=== PATIENT | male | born 1955 | race Caucasian/White ===

== ENCOUNTER → 2019-08-27 11:35 | Outpatient (BNVA) | payer MEDICARE, SELFPAY | PROVIDERS: Family Provider Family Medicine; PCP Nurse Practitioner; Visit Provider Nurse Practitioner | DX: E11.9 Type 2 diabetes mellitus without complications (principal); I10 Essential (primary) hypertension; N40.0 Benign prostatic hyperplasia without lower urinary tract symptoms; Z76.89 Persons encountering health services in other specified circumstances | CPT/HCPCS: 80053; 80061; 82044; 83036; 85025 ==

== ENCOUNTER → 2020-04-13 08:28 | Outpatient (BNVA) | payer MEDICARE, SELFPAY | PROVIDERS: Family Provider Family Medicine; PCP Family Medicine; Visit Provider Family Medicine | DX: E11.9 Type 2 diabetes mellitus without complications (principal); E78.5 Hyperlipidemia, unspecified; I10 Essential (primary) hypertension; N40.0 Benign prostatic hyperplasia without lower urinary tract symptoms; G47.00 Insomnia, unspecified | CPT/HCPCS: 80053; 80061; 82043; 83036; 84153; 85025 ==

== ENCOUNTER → 2020-05-12 10:46 | Outpatient (BNVA) | payer MEDICARE, SELFPAY | PROVIDERS: Family Provider Family Medicine; PCP Family Medicine; Visit Provider Family Medicine | DX: M25.561 Pain in right knee (principal) | CPT/HCPCS: 84550 ==

== ENCOUNTER → 2020-05-31 09:50 | Outpatient (BNVA) | payer MEDICARE, SELFPAY | PROVIDERS: Family Provider Family Medicine; PCP Family Medicine; Visit Provider Urology | DX: N40.0 Benign prostatic hyperplasia without lower urinary tract symptoms (principal); R97.20 Elevated prostate specific antigen [PSA]; N40.1 Benign prostatic hyperplasia with lower urinary tract symptoms; R33.9 Retention of urine, unspecified; Z12.5 Encounter for screening for malignant neoplasm of prostate | CPT/HCPCS: 81003; G0103 ==

== ENCOUNTER → 2020-07-13 08:10 | Outpatient (BNVA) | payer MEDICARE, SELFPAY | PROVIDERS: Family Provider Family Medicine; PCP Family Medicine; Visit Provider Urology | DX: N40.1 Benign prostatic hyperplasia with lower urinary tract symptoms (principal); R97.20 Elevated prostate specific antigen [PSA]; I10 Essential (primary) hypertension | CPT/HCPCS: 81003; 84153 ==

== ENCOUNTER → 2020-10-06 09:16 | Outpatient (BNVA) | payer MEDICARE, SELFPAY | PROVIDERS: Family Provider Family Medicine; PCP Family Medicine; Visit Provider Family Medicine | DX: I10 Essential (primary) hypertension (principal); E11.9 Type 2 diabetes mellitus without complications; E78.5 Hyperlipidemia, unspecified | CPT/HCPCS: 80053; 80061; 83036; 85025 ==

== ENCOUNTER 2020-10-30 09:01 | Outpatient (CLI) | payer MEDICARE, SELFPAY ==
[2020-10-30] MEDS: iohexol 300 mg/mL 100 mL Btl IV (09:44)
--- NOTE | 2020-10-30 10:30 | CT_ITS ---
WS: [id number] CT ABDOMEN AND PELVIS WITH AND WITHOUT CONTRAST HISTORY: GROSS HEMATURIA TECHNIQUE: Unenhanced 5 mm axial imaging first performed through the abdomen. Post contrast imaging t hrough the abdomen and pelvis. Oral contrast has not been provided. Sagittal and coronal reformats a re submitted. All CT scans at [facility] use at least one of these dose optimization tech niques: automated exposure control; mA and/or kV adjustment per patient size (includes targeted exams where dose is matched to clinical indication); or iterative reconstruction. CONTRAST: Omnipaque 300; 95 mL IV. DLP: 4254.76 mGy.cm COMPARISON: 02/28/2011 Lung bases are clear. No cardiomegaly. Small hiatal hernia. Normal size liver with no bile duct dilatation. Portal vein is negative. Normally distended gallbladd er with several stones. No acute inflammation. No bile duct dilatation. Normal spleen and pancreas. N ormal adrenal glands. Very mild atherosclerosis aorta with calcifications extending into the iliac ar teries. RIGHT kidney: 12.4 cm in length. No renal calcification. There is an enlarging low-attenuation mass i n the mid to upper posterior RIGHT kidney. Mass measures 3.8 x 3.2 cm and has increased in size since the prior CT of 2010. Hounsfield units do not increase after IV contrast. Therefore this is probably a cyst. There are a few additional very small cortical hypodensities which cannot be characterized. No renal obstruction. No ureteral obstruction. LEFT kidney: 12.1 cm in length. No renal calcifications or mass. No perinephric stranding. Negative u reter. Moderately well distended urinary bladder. There is very mild diffuse wall thickening without a discr ete area of nodularity. Markedly enlarged prostate gland is lobulated extending into the urinary blad charles. Prostate measures 6.7 x 6.9 cm and extends over length of 8.2 cm. The ureters are very closely a ssociated with the prostate gland enlargement although no obstruction at this time. Extensive diverticular disease without acute diverticulitis. More advanced changes of chronic diverti culosis in the sigmoid. The appendix is normal. No obstruction. No significant adenopathy. Inguinal c anals are patent bilaterally. Mild increase in lumbar lordosis. CT/CT abdomen pelvis wo/w [id number] IMPRESSION: 1. No solid renal mass or neoplasm or obstruction. 2. RIGHT renal cyst measures 3.8 x 3.2 cm and has increased in size since 2011 . Hounsfield units are consistent with a cyst. 3. Markedly enlarged prostate gland with encroachment into the bladder. Prosta te measures 6.7 x 6.9 cm and extends over length of 8.2 cm. 4. Prostate gland enlargement is closely associated with the distal ureters. A t this time no obstruction. 5. Cholelithiasis. 6. Moderate diverticulosis.
== END 2020-10-30 09:02 | disposition home or self-care (01) ==
LOC: RAD 09:14
PROVIDERS: PCP Family Medicine; Visit Provider Urology
DX: R31.0 Gross hematuria (principal); K57.90 Diverticulosis of intestine, part unspecified, without perforation or abscess without bleeding; K80.20 Calculus of gallbladder without cholecystitis without obstruction; N40.0 Benign prostatic hyperplasia without lower urinary tract symptoms; N28.1 Cyst of kidney, acquired
CPT/HCPCS: 74178; 81003; 84153; 87086; 88112

== ENCOUNTER → 2021-01-12 10:25 | Outpatient (BNVA) | payer MEDICARE, SELFPAY | PROVIDERS: PCP Family Medicine; Visit Provider Family Medicine | DX: E11.40 Type 2 diabetes mellitus with diabetic neuropathy, unspecified; I10 Essential (primary) hypertension; E78.5 Hyperlipidemia, unspecified | CPT/HCPCS: 80053; 83036 ==

== ENCOUNTER → 2021-05-02 08:26 | Outpatient (BNVA) | payer MEDICARE, SELFPAY | PROVIDERS: PCP Family Medicine; Visit Provider Urology | DX: R31.0 Gross hematuria (principal); R97.20 Elevated prostate specific antigen [PSA]; N40.1 Benign prostatic hyperplasia with lower urinary tract symptoms; N52.1 Erectile dysfunction due to diseases classified elsewhere; I10 Essential (primary) hypertension; E11.9 Type 2 diabetes mellitus without complications | CPT/HCPCS: 81003; 84153 ==

== ENCOUNTER → 2022-01-11 08:54 | Outpatient (BNVA) | payer MEDICARE, SELFPAY | PROVIDERS: PCP Family Medicine; Visit Provider Family Medicine | DX: I10 Essential (primary) hypertension (principal); E78.5 Hyperlipidemia, unspecified; E11.9 Type 2 diabetes mellitus without complications; E11.42 Type 2 diabetes mellitus with diabetic polyneuropathy; F51.02 Adjustment insomnia | CPT/HCPCS: 80053; 80061; 82043; 83036; 85025 ==

== ENCOUNTER → 2022-04-15 09:25 | Outpatient (BNVA) | payer MEDICARE, SELFPAY | PROVIDERS: PCP Family Medicine; Visit Provider Family Medicine | DX: R63.4 Abnormal weight loss (principal); E11.9 Type 2 diabetes mellitus without complications; Z12.11 Encounter for screening for malignant neoplasm of colon; R97.20 Elevated prostate specific antigen [PSA] | CPT/HCPCS: 80053; 83036; 84153; 84443; 85025 ==

== ENCOUNTER 2022-05-02 09:23 | Outpatient (CLI) | payer MEDICARE, SELFPAY ==
[2022-05-02 10:45] LABS: Prostate Specific AG Urology 4.41 ng/mL (0-4)
== END 2022-05-02 09:24 | disposition home or self-care (01) ==
LOC: LAB 09:34
PROVIDERS: PCP Family Medicine; Visit Provider Urology
DX: N40.1 Benign prostatic hyperplasia with lower urinary tract symptoms (principal); R31.0 Gross hematuria; R97.20 Elevated prostate specific antigen [PSA]; R33.8 Other retention of urine; N52.1 Erectile dysfunction due to diseases classified elsewhere
CPT/HCPCS: 36415; 51798; 81003; 84153; 99213

== ENCOUNTER 2022-06-06 09:56 | Emergency (ER) | payer MEDICARE, SELFPAY ==
[2022-06-06 10:07] VITALS: BP 133/76; PULSE 90; RESP 18; TEMP 36.4; O2SAT 97
--- NOTE | 2022-06-06 10:12 | XRR_ITS ---
PROCEDURE INFORMATION: Exam: XR Left Foot Exam date and time: 06/06/2022 10:33 AM Age: 66 years old Clinical indication: Injury or trauma; Wound; Foot; Left; Foreign body involvement not specified; Patient HX: HX of diabetes, great toe infection, no injury noted by patient; Additional info: Injury to great toe TECHNIQUE: Imaging protocol: Radiologic exam of the Left foot. Views: 3 or more views. AP Oblique Lateral COMPARISON: No relevant prior studies available. FINDINGS: Bones/joints: Curvilinear lucencies are seen in the region of the left great toe distal phalanx, suggestive of a mildly displaced comminuted fracture. There is 1-2 mm distraction. There is mild hallux valgus alignment abnormality. There are no dislocations. Moderate 2nd through 5th toe interphalangeal joint, severe great toe interphalangeal joint, mild 2nd through 5th metatarsophalangeal joint and moderate to severe great toe metatarsophalangeal joint space narrowing is seen, suggestive of osteoarthritic change. Mild tarsometatarsal and moderate subtalar joint degenerative changes are seen. Medium-sized plantar calcaneal spur is seen. Soft tissues: There is mild distal great toe region soft tissue swelling. There are no radiopaque foreign bodies. Notes: Followup radiographs may be obtained for complete assessment. XR/XR foot LT min 3V* [id number] IMPRESSION: Mildly displaced comminuted left great toe distal phalanx fracture, as noted above.
--- NOTE | 2022-06-06 10:23 | XRR_ITS ---
PROCEDURE INFORMATION: Exam: XR Chest Exam date and time: 06/06/2022 10:33 AM Age: 66 years old Clinical indication: Shortness of breath; Patient HX: No chest complaints. History--great toe infection. HX of diabetes; Additional info: Cp TECHNIQUE: Imaging protocol: Radiologic exam of the chest. Views: 1 view. COMPARISON: CT abdomen pelvis wo/w [id number] 10/30/2020 9:40 AM FINDINGS: Lungs: Normal lung volumes. No interstitial or airspace opacities. Pleural spaces: No pleural effusion. No pneumothorax. Heart/Mediastinum: Normal heart size. There is a mildly tortuous thoracic aorta. Midline trachea. Bones/joints: No acute abnormalities. XR/XR chest 1V portable [id number] IMPRESSION: No chest radiographic evidence of acute cardiopulmonary disease.
--- NOTE | 2022-06-06 10:23 | W.ED.EXTPRO ---
HPI - Extremity Problem General: Chief complaint: Extremity Injury, Lower Stated complaint: toe infection Time Seen by Provider: 06/06/22 10:11 History of Present Illness: Patient is a 66-year-old male who comes to the ED with left great toe infection. Patient has a history of type 2 diabetes, hypertension, dyslipidemia and diabetic neuropathy. Patient was seen at urgent care today and they examined patient's toe and sent him here to the ED for further evaluation and IV antibiotics for concern of progressing infection. Patient states that approximately a week ago he got into a hot bath and thinks he burned the distal end of his left toe from the hot water. He then states that about 4 days ago he dropped a heavy box on left great toe as well. He now has 10 out of 10 pain in his left great toe which is radiating into his left foot and left lower leg. Toe has gotten more swollen and red over the past couple days and has some small amount of purulent discharge around the nailbed. He is also complaining of having some chest pain that started at rest approximately 3 days ago. Says it is in the center of his chest and he denies any cardiac history. He has never had chest pain like this before but he says his left foot is in so much pain that it is causing him the chest pain. He states that his chest pain is very mild and most of his pain is in his left foot and left toe. Associated symptoms: Reports chest pain; Deny fever(s) or rash Review of Systems Const: Denies: fever(s), chills or fatigue Eyes: Denies: change in vision or eye discomfort ENMT: Denies: throat pain, odynophagia, nasal discharge or nasal congestion Card: Reports: chest pain; Denies: palpitations, edema, swelling of feet/ankles, dyspnea on exertion or orthopnea Resp: Denies: dyspnea, productive cough or non-productive cough GI: Denies: abdominal pain, nausea, vomiting, diarrhea, constipation or hematochezia : Denies: flank pain, difficulty urinating, dysuria or hematuria Musc: Reports: extremity pain (Left great toe and left foot) and extremity swelling (Left great toe); Denies: neck pain or back pain Skin/Breast: Denies: rash or new lesions Neuro: Denies: headache(s), numbness in extremities or weakness in extremities PFSH ED PFSH: Medical History BPH (benign prostatic hyperplasia) BPH loc w urin obs/LUTS Diabetic infection of left foot Elevated PSA Gross hematuria Hypertension Type 2 diabetes mellitus Type 2 diabetes mellitus with diabetic foot infection Urinary retention Surgical History S/P tonsillectomy Family History Mother , at age 60 Cancer colon Father Alzheimer disease Social History Smoking and tobacco status: never smoked Alcohol intake: never Current occupational status: retired History of recent travel: No Physical Exam Const: COMMON NORMALS: patient oriented x3, healthy appearing and alert HENMT: COMMON NORMALS: normocephalic HEAD & SCALP: normocephalic MOUTH: Normal oral and palatal mucosa present THROAT: posterior oropharynx normal and uvula midline Neck/C-Spine: COMMON NORMALS: supple GENERAL: Yes normal visual inspection Resp: COMMON NORMALS: normal respiratory effort, No retractions, No use of accessory muscles and clear to auscultation bilaterally AUSCULTATION: clear to auscultation bilaterally Cardio: COMMON NORMALS: regular rate, regular rhythm, S1 normal heart sound present, S2 normal heart sound present, No gallops present (Cardio), No clicks present (Cardio), No murmurs present (Cardio) and Peripheral pulses 2+ throughout RATE: regular rate RHYTHM: regular rhythm HEART SOUNDS: S1 normal heart sound present and S2 normal heart sound present PERIPHERAL PULSES: Peripheral pulses 2+ throughout GI: COMMON NORMALS: Normal to inspection, nondistended, normoactive bowel sounds present, Soft to palpation, non-tender and no masses PALPATION: Yes Soft to palpation : COMMON NORMALS: Yes no CVA tenderness BLADDER/KIDNEY EXAM: Yes no CVA tenderness Back/Pelvis: COMMON NORMALS: no CVA tenderness Extremity: NARRATIVE EXTREMITY EXAM: Left foot?great toe-erythema, warmth, swelling and tenderness noted. Small amount of purulent discharge around the nailbed. Some red streaking in the midfoot and right lower leg. Subungual hematoma seen Neuro: COMMON NORMALS: patient oriented x3 SENSORIUM/ORIENTATION: Yes alert GAIT: Yes Normal gait present Skin: GENERAL SKIN EXAM: dry skin Course Vital Signs: Vital signs: Vital Signs Temperature 97.6 F 06/06/22 14:21 Pulse Rate 90 06/06/22 14:21 Respiratory Rate 18 06/06/22 14:21 Blood Pressure 133/76 06/06/22 14:21 Pulse Oximetry 97 06/06/22 14:21 MDM - Extremity (Nontraumatic) Medical Decision Making Patient is a 66-year-old male who comes to the ED with left great toe infection. Patient has a history of type 2 diabetes, hypertension, dyslipidemia and diabetic neuropathy. Patient was seen at urgent care today and they examined patient's toe and sent him here to the ED for further evaluation and IV antibiotics for concern of progressing infection. Patient states that approximately a week ago he got into a hot bath and thinks he burned the distal end of his left toe from the hot water. He then states that about 4 days ago he dropped a heavy box on left great toe as well. He also was complaining of having chest pain for the past 3 days as well. Vitals are stable. Patient's left great toe has some erythema, warmth swelling and tenderness noted. Small amount of purulent discharge around the nailbed. He has some red streaking in midfoot and right lower leg. Subungual hematoma seen. White blood cell count 11.5 and the rest of CBC and CMP are unremarkable. X-ray left foot shows a mildly displaced comminuted left great toe distal phalanx fracture. Troponins negative. Chest x-ray shows no acute findings. Patient diagnosed with fracture of great toe and cellulitis of great toe and chest pain. He was given a dose of IV antibiotics here in the ED. I placed an order with case management for patient be referred to podiatry for follow-up on fracture. He was discharged home with a stiff soled shoe and a prescription for hydrocodone antibiotic. Return to ED precautions given. Patient understood and agreed with plan. Lab Data I reviewed the patient's lab results. 06/06/22 10:25 06/06/22 10:25 Radiology Impressions Foot X-Ray 06/06/22 10:12 IMPRESSION: Mildly displaced comminuted left great toe distal phalanx fracture, as noted above. Chest X-Ray 06/06/22 10:23 IMPRESSION: No chest radiographic evidence of acute cardiopulmonary disease. Laboratory Results WBC 11.5 10^3/uL (4.0-10.0) H 06/06/22 10:25 RBC 4.72 10^6/uL (4.1-5.3) 06/06/22 10:25 Hgb 13.6 g/dL (11.7-16.6) 06/06/22 10:25 Hct 41.1 % (42.0-52.0) L 06/06/22 10:25 MCV 87.1 fl (80-94) 06/06/22 10:25 MCH 28.8 pg (28.0-34.0) 06/06/22 10:25 MCHC 33.1 g/dL (30.0-36.0) 06/06/22 10:25 RDW 12.2 % (12.1-15.1) 06/06/22 10:25 Plt Count 275 10^3/cmm (130-400) 06/06/22 10:25 MPV 9.4 fL (7.4-10.4) 06/06/22 10:25 Neut % (Auto) 82.1 % 06/06/22 10:25 Lymph % (Auto) 7.9 % 06/06/22 10:25 Sebastian % (Auto) 9.0 % 06/06/22 10:25 Eos % (Auto) 0.3 % 06/06/22 10:25 Baso % (Auto) 0.4 % 06/06/22 10:25 Neut # (Auto) 9.42 10^3/uL (1.8-7.7) H 06/06/22 10:25 Lymph # (Auto) 0.9 10^3/uL (0.8-4.8) 06/06/22 10:25 Sebastian # (Auto) 1.0 10^3/uL (0.2-0.9) H 06/06/22 10:25 Eos # (Auto) 0.0 10^3/uL (0.0-0.8) 06/06/22 10:25 Baso # (Auto) 0.1 10^3/uL (0.0-0.1) 06/06/22 10:25 Nucleated RBC % (auto) 0 % 06/06/22 10:25 Nucleated RBCs # 0.0 /100WBC 06/06/22 10:25 Sodium 138 mmol/L (136-145) 06/06/22 10:25 Potassium 4.2 mmol/L (3.5-5.1) 06/06/22 10:25 Chloride 104 mmol/L (98-107) 06/06/22 10:25 Carbon Dioxide 21 mmol/L (22-29) L 06/06/22 10:25 Anion Gap 17.2 (5-19) 06/06/22 10:25 BUN 29 mg/dL (8-23) H 06/06/22 10:25 Creatinine 0.9 mg/dL (0.7-1.2) 06/06/22 10:25 GFR Calculation 83.9 mL/min (90-130) L 06/06/22 10:25 Glucose 115 mg/dL (65-115) 06/06/22 10:25 Calculated Osmolality 293 mOsm/kg (285-295) 06/06/22 10:25 Calcium 9.7 mg/dL (8.5-10.5) 06/06/22 10:25 Total Bilirubin 0.6 mg/dL (0.15-1.2) 06/06/22 10:25 AST 21 U/L (0-40) 06/06/22 10:25 ALT 23 U/L (0-41) 06/06/22 10:25 Alkaline Phosphatase 81 U/L (40-130) 06/06/22 10:25 Troponin T Baseline 20 ng/L (0-15) H 06/06/22 10:25 Troponin T 120 Minute 12.26 ng/L (0-15) 06/06/22 12:38 Delta Troponin T -7.74 ABS# (0-10) L 06/06/22 12:38 C-Reactive Protein 178.9 mg/L (0.0-4.9) H 06/06/22 10:25 NT-Pro-B Natriuret Pep 77 pg/mL (0-125) 06/06/22 10:25 Total Protein 7.3 g/dL (6.6-8.7) 06/06/22 10:25 Albumin 4.1 g/dL (3.5-5.2) 06/06/22 10:25 Globulin 3.2 g/dL (1.3-4.6) 06/06/22 10:25 EKG Data EKG 1: I personally reviewed and interpreted this EKG as follows: EKG interpretation date: 06/06/22 Interpretation: Sinus rhythm, no ST segment elevation or depression seen. 75 bpm Discharge Plan Discharge Patient Disposition: Home Clinical Impression: Fracture of great toe Qualifiers: Encounter type: initial encounter Fracture type: open Phalanx: distal Fracture alignment: displaced Laterality: left Qualified Code(s): S92.422B - Displaced fracture of distal phalanx of left great toe, initial encounter for open fracture Cellulitis of great toe Qualifiers: Laterality: left Qualified Code(s): L03.032 - Cellulitis of left toe Chest pain Qualifiers: Chest pain type: unspecified Qualified Code(s): R07.9 - Chest pain, unspecified Condition: Stable Prescriptions: New sulfamethoxazole-trimethoprim 800-160 mg tablet 1 tab PO BID 10 Days Qty: 20 0RF No Action lidocaine HCl 2 % jelly 1 applic intra-urethral ONCE Qty: 1 0RF (DME) Cam Boot to the Left foot See Rx Instructions .Route .MEDSUPPLY Qty: 1 0RF Rx Instructions: As directed meloxicam 15 mg tablet 15 mg PO DAILY 90 Days Qty: 90 1RF Rx Instructions: Take with food pregabalin 50 mg capsule 50 mg PO TID 90 Days Qty: 270 1RF lisinopril-hydrochlorothiazide 20-12.5 mg tablet 1 tab PO DAILY amlodipine 5 mg tablet 5 mg PO BEDTIME tamsulosin 0.4 mg capsule 0.8 mg PO DAILY trazodone 100 mg tablet 100 mg PO BEDTIME metformin 1,000 mg tablet 1,000 mg PO BID Proscar 5 mg tablet 5 mg PO DAILY ezetimibe 10 mg tablet 10 mg PO DAILY Discharge Orders: Discharge ED (Routine); Ordered 06/06/22 Ordered By: Trino Christian Referrals: Malick Corrales MD [Primary Care Provider] - Discharge Diet: Regular Discharge Activity: Increase activity as tolerated Patient Instructions: Toe Fracture (ED), Cellulitis (ED), Opioid Safety Activity Restrictions/Additional Instructions: Follow-up with medical provider as directed. Case management should be contacting you in the next several days to set up an appointment with the event crew technician here at [facility] for further evaluation of toe injury. Wear stiff soled shoe with ambulation and you can use a cane or other type of device at home to limit weightbearing to help with pain. Take medications as prescribed. Return to the ER or your medical provider if condition worsens. Please read and understand discharge instructions. Thank you for choosing [facility] for your healthcare needs today. Please realize this is an emergency room and that we are providing you with a medical screening exam and this may not be complete and all inclusive of all the testing and or work up that you may need to determine your ailment or severity of your illness. It is very important that you follow up as instructed or that you return to the Emergency Department should you have concerns or if your condition changes or worsens in any way. Coding Level of Care Code ED Siding Coreboard Inspector for Richard Sadler Exam Comprehensive
--- NOTE | 2022-06-06 10:33 | ECG_ITS ---
[facility] Test Date: 2022-06-06 Pat Name: Serjio Govea Department: Room: Gender: Male Print Journalist: : 1955 Requested By: Trino Christian Order Number: [id number] Monzon MD: Paulo Rodgers M.D. Measurements Intervals [place] Rate: 87 P: 51 GA: 155 QRS: 62 QRSD: 95 T: 36 QT: 357 QTc: 431 Interpretive Statements SINUS RHYTHM WITH OCCASIONAL VENTRICULAR PREMATURE COMPLEXES Compared to ECG 01/28/2018 19:23:19 No significant changes Electronically Signed On 06-07-2022 13:49:48 WEIGHT AND BALANCE CONTROL AGENT by Paulo Rodgers M.D. [id number]
[2022-06-06 10:37] LABS: Basophils # 0.1 10^3/uL (0.0-0.1); Basophils % 0.4 %; Eosinophils % 0.3 %; Hematocrit 41.1 % (42.0-52.0); Hemoglobin 13.6 g/dL (11.7-16.6); Lymphocytes # 0.9 10^3/uL (0.8-4.8); Lymphocytes % 7.9 %; Mean Corpuscular HGB Conc 33.1 g/dL (30.0-36.0); Mean Corpuscular Hemoglobin 28.8 pg (28.0-34.0); Mean Corpuscular Volume 87.1 fl (80-94); Mean Platelet Volume 9.4 fL (7.4-10.4); Neutrophils # 9.42 10^3/uL (1.8-7.7); Neutrophils % 82.1 %; Nucleated Red Blood Cells % 0 %; Platelet Count 275 10^3/cmm (130-400); Red Blood Count 4.72 10^6/uL (4.1-5.3); Red Cell Distribution Width 12.2 % (12.1-15.1); White Blood Count 11.5 10^3/uL (4.0-10.0)
[2022-06-06 11:00] LABS: Troponin(5th) Baseline 20 ng/L (0-15)
[2022-06-06 11:06] LABS: Alanine Aminotransferase 23 U/L (0-41); Albumin Level 4.1 g/dL (3.5-5.2); Alkaline Phosphatase 81 U/L (40-130); Anion Gap 17.2 (5-19); Aspartate Amino Transferase 21 U/L (0-40); Blood Urea Nitrogen 29 mg/dL (8-23); C Reactive Protein 178.9 mg/L (0.0-4.9); Calcium 9.7 mg/dL (8.5-10.5); Carbon Dioxide 21 mmol/L (22-29); Chloride 104 mmol/L (98-107); Globulin 3.2 g/dL (1.3-4.6); Glomerular Filtration Rate 83.9 mL/min (90-130); Glucose 115 mg/dL (65-115); NT Pro B Type Natriuretic Pept 77 pg/mL (0-125); Osmolality Calculated 293 mOsm/kg (285-295); Potassium 4.2 mmol/L (3.5-5.1); Sodium 138 mmol/L (136-145); Total Bilirubin 0.6 mg/dL (0.15-1.2); Total Protein 7.3 g/dL (6.6-8.7)
[2022-06-06] MEDS: sodium chloride 0.9% 500 ML 999 ML IV (11:30)
[2022-06-06] MEDS: ondansetron 2 mg/ML SDV 2 mL 4 MG IVP (11:31)
[2022-06-06] MEDS: morphine 4 mg/mL SDV 1 mL IVP (11:31)
[2022-06-06] MEDS: vancomycin 1,500 MG/300 ML PIGGYBACK 200 MG IV (11:34)
[2022-06-06 11:49] VITALS: BP 133/76; PULSE 90; RESP 18; TEMP 36.4; O2SAT 97
--- NOTE | 2022-06-06 12:51 | ECG_ITS ---
[facility] Test Date: 2022-06-06 Pat Name: Serjio Govea Department: Room: Gender: Male Decorating Consultant: : 1955 Requested By: Trino Christian Order Number: [id number] Monzon MD: Paulo Rodgers M.D. Measurements Intervals [place] Rate: 75 P: 55 CT: 146 QRS: 56 QRSD: 83 T: 16 QT: 375 QTc: 420 Interpretive Statements SINUS RHYTHM Compared to ECG 06/06/2022 10:33:51 Ventricular premature complex(es) no longer present Electronically Signed On 06-07-2022 13:53:25 RANCH COOK by Paulo Rodgers M.D. [email or web address] Control [id number]
--- NOTE | 2022-06-06 13:42 | DCPLANNER ---
Addendum entered by Frieda Peraza 06/11/22 13:08: Patient had a follow up appointment with ortho - patient did attend appointment. Original Note: water manager had message to schedule a follow up appointment for patient with ortho. water manager sent patients information to the front office staff at ortho. Patients information will be printed and reviewed. Clinic will call patient with appointment information.
[2022-06-06 13:51] LABS: Troponin 5 2HR 12.26 ng/L (0-15)
[2022-06-06 13:58] LABS: Troponin 5 2HR Delta -7.74 ABS# (0-10)
[2022-06-06 14:21] VITALS: BP 133/76; PULSE 90; RESP 18; TEMP 36.4; O2SAT 97
== END 2022-06-06 14:25 | disposition home or self-care (01) ==
PROVIDERS: Emergency Provider Physician Assistant; PCP Family Medicine Adult Medicine
DX: S92.422B Displaced fracture of distal phalanx of left great toe, initial encounter for open fracture (principal); L03.032 Cellulitis of left toe; R07.9 Chest pain, unspecified; Z79.84 Long term (current) use of oral hypoglycemic drugs; E11.9 Type 2 diabetes mellitus without complications; I10 Essential (primary) hypertension; E78.5 Hyperlipidemia, unspecified; W20.8XXA Other cause of strike by thrown, projected or falling object, initial encounter
CPT/HCPCS: 36415; 71045; 73630; 80053; 83880; 84484; 85025; 86140; 87040; 87077; 87150; 87186; 87205; 93005; 96365; 96375; 99285; J2270; J2405; J3370; J7040

== ENCOUNTER 2022-06-06 15:53 | Outpatient (CLI) | payer MEDICARE, MEDICAID, SELFPAY | END 2022-06-06 15:54 | disposition home or self-care (01) | LOC: SPT 15:53 | PROVIDERS: PCP Family Medicine Adult Medicine; Visit Provider Podiatrist Foot & Ankle Surgery | DX: Z46.89 Encounter for fitting and adjustment of other specified devices (principal); S92.422D Displaced fracture of distal phalanx of left great toe, subsequent encounter for fracture with routine healing; X58.XXXD Exposure to other specified factors, subsequent encounter; S92.422B Displaced fracture of distal phalanx of left great toe, initial encounter for open fracture; W20.8XXA Other cause of strike by thrown, projected or falling object, initial encounter; E11.42 Type 2 diabetes mellitus with diabetic polyneuropathy; Z79.84 Long term (current) use of oral hypoglycemic drugs | CPT/HCPCS: 97760; 99204; L4361 ==

== ENCOUNTER → 2022-06-12 11:53 | Outpatient (BNVA) | payer MEDICARE, SELFPAY | PROVIDERS: PCP Family Medicine Adult Medicine; Visit Provider Podiatrist Foot & Ankle Surgery | DX: E11.621 Type 2 diabetes mellitus with foot ulcer (principal); L97.523 Non-pressure chronic ulcer of other part of left foot with necrosis of muscle; W23.0XXA Caught, crushed, jammed, or pinched between moving objects, initial encounter; E11.42 Type 2 diabetes mellitus with diabetic polyneuropathy; Z79.84 Long term (current) use of oral hypoglycemic drugs; S92.402A Displaced unspecified fracture of left great toe, initial encounter for closed fracture | CPT/HCPCS: 73630; 87070; 87075; 87077; 87186; 87205; 99214 ==

== ENCOUNTER → 2022-06-19 09:21 | Outpatient (BNVA) | payer MEDICARE, SELFPAY | PROVIDERS: PCP Family Medicine Adult Medicine; Visit Provider Podiatrist Foot & Ankle Surgery | DX: E11.42 Type 2 diabetes mellitus with diabetic polyneuropathy (principal); L97.524 Non-pressure chronic ulcer of other part of left foot with necrosis of bone; E11.621 Type 2 diabetes mellitus with foot ulcer; W23.0XXD Caught, crushed, jammed, or pinched between moving objects, subsequent encounter; Z79.84 Long term (current) use of oral hypoglycemic drugs; S92.425D Nondisplaced fracture of distal phalanx of left great toe, subsequent encounter for fracture with routine healing | CPT/HCPCS: 11044 ==

== ENCOUNTER 2022-06-27 10:05 | Day surgery (SDC) | payer MEDICARE, SELFPAY ==
[2022-06-26 10:22] VITALS: BMI 27.1
[2022-06-27 10:50] VITALS: BP 137/90; PULSE 75; RESP 18; TEMP 36.2; O2SAT 98
--- NOTE | 2022-06-27 11:11 | W.PM.OPSUD ---
Surgery/Procedure H&P Update DATE OF PROCEDURE: June 27, 2022 DATE H&P PERFORMED: 06/19/22 CHANGES TO PREVIOUS DOCUMENTATION: none PREOP DIAGNOSIS: Osteomyelitis left great toe PLANNED PROCEDURE: Operation Date: 06/27/22 12:00 Proposed Procedures p Left hallux amputation?75387/L97.524(Left) - Jorden Sotelo DPM
[2022-06-27] MEDS: sodium chloride 0.9% 1,000 ML 30 ML IV (11:35)
[2022-06-27] MEDS: vancomycin 1,000 MG in sodium chloride 0.9% 250 ML 250 MG IV (11:42)
[2022-06-27 11:47] LABS: Glucose Point of Care 107 mg/dL (70-110)
[2022-06-27] MEDS: lidocaine 1% INJ 20 mL 10 ML XX (11:50)
[2022-06-27 11:53] LABS: Anion Gap 13.9 (5-19); Blood Urea Nitrogen 25 mg/dL (8-23); Calcium 9.5 mg/dL (8.5-10.5); Carbon Dioxide 25 mmol/L (22-29); Chloride 107 mmol/L (98-107); Creatinine Clr Calc Pharmacy 92.0524; Glomerular Filtration Rate 83.9 mL/min (90-130); Glucose 101 mg/dL (65-115); Osmolality Calculated 297 mOsm/kg (285-295); Potassium 4.9 mmol/L (3.5-5.1); Sodium 141 mmol/L (136-145)
--- NOTE | 2022-06-27 12:12 | ANES.PREANE2 ---
Pre-Anesthetic Assessment Height/Weight: Height 1.83 m Weight 90.718 kg Temp Pulse Resp BP Pulse Ox O2 Del Method 97.2 F L 75 18 137/90 98 06/27/22 10:50 06/27/22 10:50 06/27/22 10:50 06/27/22 10:50 06/27/22 10:50 06/27/22 10:50 Preop Diagnosis: Osteomyelitis left great toe Operation Date: 06/27/22 12:00 Proposed Procedures p Left hallux amputation?82945/L97.524(Left) - Jorden Sotelo DPM Familial anesthetic complications: none Was Beta Donna taken within 24 hours: N/A Was Clonidine taken within 24 hours: N/A Last intake: Intake Last Liquid Date 06/26/22 Last Liquid Time 22:00 Last Solid Date 06/26/22 Last Solid Time 15:00 Social Tobacco and No alcohol Exam alert, oriented x 3 and regular rate & rhythm Airway Submandibular: within normal limits Cervical ROM: within normal limits Mallampati: Class II Dentition: false Pulmonary Chronic Obstructive Pulmonary Disease CV/HEM Hypertension Metabolic Diabetes Mellitus and Hyperlipidemia Neuropsych Neuropathy Anesthetic Plan ASA status: 3 Anesthesia: MAC Medications/Allergies Home Medications Medication Instructions Recorded Confirmed Last Taken Type meloxicam 15 mg tablet 15 mg PO DAILY 90 days #90 tabs 01/11/22 06/27/22 06/26/22 Rx pregabalin 50 mg capsule 50 mg PO TID 90 days #270 caps 01/11/22 06/27/22 06/26/22 Rx Cam Boot to the Left foot #1 ea 06/06/22 06/19/22 Unknown Rx amlodipine 5 mg tablet 5 mg PO BEDTIME 06/06/22 06/27/22 06/26/22 History ezetimibe 10 mg tablet 10 mg PO DAILY 06/06/22 06/27/22 06/27/22 History finasteride 5 mg tablet (Proscar) 5 mg PO DAILY 06/06/22 06/27/22 06/26/22 History lisinopril 20 1 tab PO DAILY 06/06/22 06/27/22 06/26/22 History mg-hydrochlorothiazide 12.5 mg tablet metformin 1,000 mg tablet 1,000 mg PO BID 06/06/22 06/27/22 06/26/22 08:00 History tamsulosin 0.4 mg capsule 0.8 mg PO DAILY 06/06/22 06/27/22 06/27/22 History trazodone 100 mg tablet 100 mg PO BEDTIME 06/06/22 06/27/22 06/26/22 History Allergies Allergy/AdvReac Type Severity Reaction Status Date / Time atorvastatin Allergy Unknown Unknown Verified 06/19/22 09:34 Current Medications Generic Name Dose Route Start Last Admin Trade Name Freq PRN Reason Stop Dose Admin Sodium Chloride 1,000 mls @ 30 mls/hr 06/27/22 10:15 06/27/22 11:35 Sodium Chloride 0.9% IV 06/28/22 10:14 30 mls/hr .Q24H BRITT Administration PFSH Anesthesia Medical History BPH (benign prostatic hyperplasia) BPH loc w urin obs/LUTS Diabetic infection of left foot Elevated PSA Gross hematuria Hypertension Type 2 diabetes mellitus Type 2 diabetes mellitus with diabetic foot infection Urinary retention Surgical History S/P tonsillectomy Family History Mother , at age 60 Cancer colon Father Alzheimer disease Social History Smoking and tobacco status: never smoked Alcohol intake: never Current occupational status: retired History of recent travel: No Data Anesthesia 06/27/22 Unknown BMP 06/27/22 Unknown Sodium 141 Potassium 4.9 Chloride 107 Carbon Dioxide 25 BUN 25 H Creatinine 0.9 Glucose 101 Calcium 9.5 Cardiac Studies: No Data to Display
[2022-06-27 12:14] VITALS: BP 82/57; PULSE 67; RESP 18; TEMP 36.1; O2SAT 97
[2022-06-27 12:20] VITALS: BP 90/50; PULSE 65; RESP 18; O2SAT 95
[2022-06-27 12:27] VITALS: BP 99/50; PULSE 60; RESP 18; O2SAT 99
[2022-06-27 12:37] VITALS: BP 112/72; PULSE 74; RESP 18; O2SAT 96
--- NOTE | 2022-06-27 12:53 | PM.OP ---
Operative Report Date of procedure: June 27, 2022 Pre-op diagnosis: Preop Diagnosis Osteomyelitis left great toe Post-op diagnosis: Osteomyelitis left great toe Post-op findings: Devitalized bone distal phalanx left great toe Procedure done: Left great toe amputation. CPT code 32643 Implants: 4-0 Vicryl, 4-0 nylon Pathology: Left great toe sent to pathology for permanent Surgeon: Jorden Sotelo D.P.M. [employer] Lead: See intraoperative documentation Estimated blood loss: 10 See intraoperative documentation IV fluids: None Urine output: None Complications: None Findings: Devitalized bone, left great toe distal phalanx Brief History: Osteomyelitis distal phalanx left great toe, started out as a traumatic wound having been crushed by a box, wound progressed patient is diabetic.? He has palpable pulses.? Cultures yielded staph aureus.? He does show some soft tissue improvement with clindamycin and ciprofloxacin.? Discussed continuation of medical management and local wound care, long-term antibiotics with potential success of eradicating osteomyelitis.? Also discussed surgical amputation of the left great toe, benefits would be source control of infection and negating long-term antibiotics.? Patient is against taking antibiotics long-term should there be unpredictable outcomes with this that may require amputation down the road anyways.? He wishes to proceed with surgical amputation next week.? He states he has to wait till Friday next week.? For this reason he will be given an additional 7 days of clindamycin and ciprofloxacin as previously prescribed.? The left great toe wound was sharply and excisionally debrided down to bone, was able to debride down to the dorsal aspect of the base of the distal phalanx.? This was excisional debridement in nature with a sterile curette.? Post debridement wound measurements 1 cm x 1.2 cm x 0.4 cm with hemostasis via manual pressure.? Dressed with Betadine wet-to-dry.? Patient will continue with daily dressing change Betadine wet-to-dry, offloading with postop shoe and avoid getting wet when showering.? Antibiotics as prescribed above.? Will schedule outpatient left hallux amputation 06/28/2022.? He is to present to the emergency department with any worsening of symptoms including but not limited to increased redness, increased drainage, increased pain, foul-smelling odor, nausea, vomiting, fevers, chills or shortness of breath. Procedure: Under mild sedation the patient was brought to the operating room and remained on the gurney in supine position. A timeout was performed. Anesthesia was then administered by the anesthesia service. Local anesthesia was injected by myself consisting of 20 cc of one-to-one mixture 1% lidocaine and 0.5% Marcaine plain in a left Miranda block fashion. Well-padded pneumatic tourniquet applied to the left ankle. The left lower extremity was then scrubbed, prepped and draped utilizing normal aseptic technique. Attention was directed to the left great toe where a fishmouth incision was performed encompassing the left first metatarsal phalangeal joint full-thickness down to bone and the left great toe was disarticulated sharply through the first metatarsal phalangeal joint and passed from the operative field to the back table. The left great toe had a wound proximal to the proximal nail fold that communicated to bone with soft and discolored distal phalanx appreciated. This will be sent to pathology for permanent. The incision was irrigated with copious amounts of sterile skin solution. Soft tissue coverage was adequate without tension. There is no devitalized soft tissue remaining, first metatarsal head was normal color and density without signs of infectious process. Tendons were retracted and transected, all bleeders ligated and cauterized as necessary. The incision was further irrigated and closed in a layered fashion. Subcutaneous tissue reapproximated with 4-0 Vicryl. Skin with 4-0 nylon. Incision was then dressed with Adaptic, sterile 4 x 4, Kerlix and Isidro wrap. Tourniquet was deflated and a prompt hyperemic response is noted to the distal digits of the left foot. Cam boot was then applied. Patient was transferred to the PACU with vital signs stable and vascular status intact. Following a period of postoperative monitoring he will be discharged home is to be nonweightbearing to the left foot and is given at home care instructions as well as follow-up for next week.
== END 2022-06-27 13:06 | disposition home or self-care (01) ==
PROVIDERS: PCP Family Medicine; Visit Provider Podiatrist Foot & Ankle Surgery
PROC: (CPT 28805; principal; 2022-06-27 12:00)
DX: M86.8X7 Other osteomyelitis, ankle and foot (principal); L97.524 Non-pressure chronic ulcer of other part of left foot with necrosis of bone; J44.9 Chronic obstructive pulmonary disease, unspecified; I10 Essential (primary) hypertension; E78.5 Hyperlipidemia, unspecified; E11.40 Type 2 diabetes mellitus with diabetic neuropathy, unspecified; E11.621 Type 2 diabetes mellitus with foot ulcer; N40.1 Benign prostatic hyperplasia with lower urinary tract symptoms; N13.8 Other obstructive and reflux uropathy
CPT/HCPCS: 28820; 36415; 36416; 80048; 82962; 88305; 88311; J2704; J3010; J3370; J3490; J7030; J7050

== ENCOUNTER → 2022-07-03 08:36 | Outpatient (BNVA) | payer MEDICARE, MEDICAID, SELFPAY | PROVIDERS: PCP Family Medicine; Visit Provider Podiatrist Foot & Ankle Surgery | DX: E11.621 Type 2 diabetes mellitus with foot ulcer (principal); E11.42 Type 2 diabetes mellitus with diabetic polyneuropathy; L97.524 Non-pressure chronic ulcer of other part of left foot with necrosis of bone; Z89.412 Acquired absence of left great toe; Z79.84 Long term (current) use of oral hypoglycemic drugs | CPT/HCPCS: 99213 ==

== ENCOUNTER → 2022-07-18 09:16 | Outpatient (BNVA) | payer MEDICARE, MEDICAID, SELFPAY | PROVIDERS: PCP Family Medicine; Visit Provider Urology | DX: N40.1 Benign prostatic hyperplasia with lower urinary tract symptoms (principal); R33.8 Other retention of urine; N52.1 Erectile dysfunction due to diseases classified elsewhere; R97.20 Elevated prostate specific antigen [PSA]; E11.621 Type 2 diabetes mellitus with foot ulcer; L97.524 Non-pressure chronic ulcer of other part of left foot with necrosis of bone; Z89.412 Acquired absence of left great toe; E11.42 Type 2 diabetes mellitus with diabetic polyneuropathy; Z79.84 Long term (current) use of oral hypoglycemic drugs | CPT/HCPCS: 81003; 83036; 99214 ==

== ENCOUNTER → 2022-12-02 13:40 | Outpatient (BNVA) | payer OTHER, SELFPAY | PROVIDERS: PCP Family Medicine; Visit Provider Family Medicine | DX: E11.9 Type 2 diabetes mellitus without complications (principal) | CPT/HCPCS: 80053; 80061; 82043; 83036; 85025 ==

== ENCOUNTER → 2022-12-09 08:05 | Outpatient (BNVA) | payer OTHER, SELFPAY | PROVIDERS: PCP Family Medicine; Visit Provider Urology | DX: N40.1 Benign prostatic hyperplasia with lower urinary tract symptoms (principal) | CPT/HCPCS: 36415; 81003; 84153 ==

== ENCOUNTER → 2023-04-08 12:16 | Outpatient (BNVA) | payer OTHER, MEDICAID, SELFPAY | PROVIDERS: PCP Family Medicine; Visit Provider Family Medicine | DX: E11.9 Type 2 diabetes mellitus without complications (principal); R97.20 Elevated prostate specific antigen [PSA] | CPT/HCPCS: 80053; 83036 ==

== ENCOUNTER → 2023-08-22 09:31 | Outpatient (BNVA) | payer OTHER, MEDICARE, MEDICAID, SELFPAY | PROVIDERS: PCP Family Medicine; Visit Provider Family Medicine | DX: E11.628 Type 2 diabetes mellitus with other skin complications (principal); L08.9 Local infection of the skin and subcutaneous tissue, unspecified | CPT/HCPCS: 80053; 83036 ==

== ENCOUNTER → 2023-08-26 13:25 | Outpatient (BNVA) | payer OTHER, MEDICARE, MEDICAID, SELFPAY | PROVIDERS: PCP Family Medicine; Visit Provider Thoracic Surgery (Cardiothoracic Vascular Surgery) | DX: E11.9 Type 2 diabetes mellitus without complications (principal) | CPT/HCPCS: 87070; 87176; 87205 ==

== ENCOUNTER 2023-09-02 13:43 | Outpatient (CLI) | payer OTHER, MEDICARE, MEDICAID, SELFPAY ==
--- NOTE | 2023-09-02 14:15 | USCV_ITS ---
Serjio Govea Age: 68 Gender: M : 1955 Exam Date: 09/02/2023 14:06 Ordering Phys: Anthony Hernandez MD (Andy) ([email or web address]) Technologist: JOVANA [place] [facility] [place]ication: LLE DM ULCER Risk Factors: Previous Vascular Surgery: RIGHT LEFT BP: 111.0 / 60.00 BP: 115.0/ 56.00 0 0 Waveform Velocity (cm/s) Velocity (cm/s) Waveform Iliac Prox 81.0 Triphasic Iliac Mid 82.0 Triphasic Iliac Distal 97.0 Triphasic MINING ENGINEERING TECHNOLOGIST 98.0 Triphasic SFA Prox 83.0 Triphasic SFA Mid 87.0 Triphasic SFA Dist 103.0 Triphasic POP 82.0 Triphasic TIN ASSORTER 43.0 Monophasic DPA 110.0 Monophasic VINCE 0.7 FINDINGS Mild to moderate diffuse plaque in the iliac, femoral, popliteal and infrapopliteal vessels on the left side Resting VINCE of 0.7 on the right left side CONCLUSIONS 1. Abnormal resting VINCE on the left side suggesting moderate peripheral artery disease 2. Mild to moderate diffuse plaques in the arteries mentioned above Dr Lynne Mclaughlin MD [facility] (Electronically Signed) Final Date: 04 September 2023 21:41 S
== END 2023-09-02 13:44 | disposition home or self-care (01) ==
LOC: RAD 13:43
PROVIDERS: PCP Family Medicine; Visit Provider Thoracic Surgery (Cardiothoracic Vascular Surgery)
DX: E11.621 Type 2 diabetes mellitus with foot ulcer (principal); L97.529 Non-pressure chronic ulcer of other part of left foot with unspecified severity; E11.51 Type 2 diabetes mellitus with diabetic peripheral angiopathy without gangrene
CPT/HCPCS: 93926

== ENCOUNTER → 2023-09-18 08:33 | Outpatient (BNVA) | payer MEDICARE, MEDICAID, SELFPAY | PROVIDERS: PCP Family Medicine; Visit Provider Podiatrist Foot & Ankle Surgery | DX: E11.42 Type 2 diabetes mellitus with diabetic polyneuropathy (principal); M21.41 Flat foot [pes planus] (acquired), right foot; M21.42 Flat foot [pes planus] (acquired), left foot; Z79.84 Long term (current) use of oral hypoglycemic drugs | CPT/HCPCS: 99213 ==

== ENCOUNTER 2023-09-26 10:54 | Outpatient (CLI) | payer MEDICARE, MEDICAID, SELFPAY ==
--- NOTE | 2023-09-26 10:59 | XR_ITS ---
WS: [id number] Examination: XR foot LT min 3V* [id number] Reason for Exam: R/O osteo Date: September 26, 2023 Comparison: June 12, 2022 Findings: The bone density is diminished. There is soft tissue swelling In the interval there has been amputation of the left great toe. No denia destruction of the first me tatarsal is identified. There is soft tissue swelling of the second toe with destruction of the distal phalanx, distal interp halangeal joint, and head of the middle phalanx. Erosive changes are again noted involving the second, third, and fifth metatarsal heads as well as th e second and third proximal phalangeal bases. Impression: Soft tissue swelling and destruction of portions of the middle and distal phalanx of the left second toe is noted consistent with osteomyelitis. In the interval there has been amputation of the great toe.
== END 2023-09-26 10:55 | disposition home or self-care (01) ==
LOC: RAD 10:57
PROVIDERS: PCP Family Medicine; Visit Provider Thoracic Surgery (Cardiothoracic Vascular Surgery)
DX: E11.621 Type 2 diabetes mellitus with foot ulcer (principal); L97.509 Non-pressure chronic ulcer of other part of unspecified foot with unspecified severity; Z89.412 Acquired absence of left great toe
CPT/HCPCS: 11042; 11750; 73630

== ENCOUNTER 2023-10-03 10:26 | Outpatient (CLI) | payer MEDICARE, MEDICAID, SELFPAY ==
[2023-10-03 11:00] LABS: Basophils # 0.1 10^3/uL (0.0-0.1); Basophils % 1.7 %; Eosinophils # 0.4 10^3/uL (0.0-0.8); Eosinophils % 6.1 %; Hematocrit 45.8 % (37-53); Lymphocytes # 1.9 10^3/uL (0.8-4.8); Lymphocytes % 32.2 %; Mean Corpuscular HGB Conc 32.5 g/dL (30-55); Mean Corpuscular Hemoglobin 29.3 pg (27-33); Mean Platelet Volume 9.5 fL (7.4-10.4); Monocytes # 0.5 10^3/uL (0.2-0.9); Monocytes % 7.6 %; Neutrophils # 3.13 10^3/uL (1.8-7.7); Neutrophils % 51.9 %; Nucleated Red Blood Cells % 0 %; Platelet Count 252 10^3/cmm (157-399); Red Blood Count 5.09 10^6/uL (3.85-5.65); White Blood Count 6.03 10^3/uL (3.29-11.43)
[2023-10-03 11:14] LABS: Erythrocyte Sedimentation Rate 8 mm/hr (0-10)
[2023-10-03 11:22] LABS: Anion Gap 14.5 (5-19); Blood Urea Nitrogen 20 mg/dL (8-23); C Reactive Protein 4.9 mg/L (0.0-4.9); Carbon Dioxide 24 mmol/L (22-29); Chloride 105 mmol/L (98-107); Glomerular Filtration Rate 59.9 mL/min (90-130); Glucose 109 mg/dL (65-115); Osmolality Calculated 289 mOsm/kg (285-295); Potassium 5.5 mmol/L (3.5-5.1); Sodium 138 mmol/L (136-145)
== END 2023-10-03 10:27 | disposition home or self-care (01) ==
LOC: LAB 10:28
PROVIDERS: PCP Family Medicine; Visit Provider Thoracic Surgery (Cardiothoracic Vascular Surgery)
DX: M86.172 Other acute osteomyelitis, left ankle and foot (principal)
CPT/HCPCS: 11042; 36415; 80048; 85025; 85651; 86140; 87070; 87176; 87205

== ENCOUNTER → 2023-10-10 08:59 | Outpatient (BNVA) | payer MEDICARE, MEDICAID, SELFPAY | PROVIDERS: PCP Family Medicine; Visit Provider Thoracic Surgery (Cardiothoracic Vascular Surgery) | DX: E11.52 Type 2 diabetes mellitus with diabetic peripheral angiopathy with gangrene (principal); E11.621 Type 2 diabetes mellitus with foot ulcer; L97.521 Non-pressure chronic ulcer of other part of left foot limited to breakdown of skin | CPT/HCPCS: 97597 ==

== ENCOUNTER → 2023-10-24 10:07 | Outpatient (BNVA) | payer MEDICARE, MEDICAID, SELFPAY | PROVIDERS: PCP Family Medicine; Visit Provider Thoracic Surgery (Cardiothoracic Vascular Surgery) | DX: E11.52 Type 2 diabetes mellitus with diabetic peripheral angiopathy with gangrene (principal); E11.621 Type 2 diabetes mellitus with foot ulcer; L97.521 Non-pressure chronic ulcer of other part of left foot limited to breakdown of skin | CPT/HCPCS: 97597 ==

== ENCOUNTER → 2023-11-05 14:30 | Outpatient (BNVA) | payer MEDICARE, MEDICAID, SELFPAY | PROVIDERS: PCP Family Medicine; Visit Provider Thoracic Surgery (Cardiothoracic Vascular Surgery) | DX: E11.52 Type 2 diabetes mellitus with diabetic peripheral angiopathy with gangrene (principal); E11.621 Type 2 diabetes mellitus with foot ulcer; L97.521 Non-pressure chronic ulcer of other part of left foot limited to breakdown of skin | CPT/HCPCS: 97597 ==

== ENCOUNTER → 2023-11-25 13:20 | Outpatient (BNVA) | payer MEDICARE, MEDICAID, SELFPAY | PROVIDERS: PCP Family Medicine; Visit Provider Thoracic Surgery (Cardiothoracic Vascular Surgery) | DX: Z09 Encounter for follow-up examination after completed treatment for conditions other than malignant neoplasm (principal); Z87.2 Personal history of diseases of the skin and subcutaneous tissue | CPT/HCPCS: 99212 ==

== ENCOUNTER → 2023-12-01 11:43 | Outpatient (BNVA) | payer MEDICARE, MEDICAID, SELFPAY | PROVIDERS: PCP Family Medicine; Visit Provider Family Medicine | DX: E11.9 Type 2 diabetes mellitus without complications (principal) | CPT/HCPCS: 80053; 80061; 82043; 83036; 85025 ==

== ENCOUNTER → 2023-12-09 13:58 | Outpatient (BNVA) | payer MEDICARE, MEDICAID, SELFPAY | PROVIDERS: PCP Family Medicine; Visit Provider Thoracic Surgery (Cardiothoracic Vascular Surgery) | DX: Z09 Encounter for follow-up examination after completed treatment for conditions other than malignant neoplasm (principal); Z87.2 Personal history of diseases of the skin and subcutaneous tissue | CPT/HCPCS: 99212 ==

== ENCOUNTER → 2024-07-13 14:47 | Outpatient (BNVA) | payer MEDICARE, MEDICAID, SELFPAY | PROVIDERS: PCP Family Medicine; Visit Provider Family Medicine | DX: Z12.5 Encounter for screening for malignant neoplasm of prostate (principal); E11.9 Type 2 diabetes mellitus without complications; R97.20 Elevated prostate specific antigen [PSA] | CPT/HCPCS: 80048; 83036; 84153 ==

== ENCOUNTER → 2024-09-02 14:15 | Outpatient (BNVA) | payer MEDICARE, MEDICAID, SELFPAY | PROVIDERS: PCP Family Medicine; Visit Provider Thoracic Surgery (Cardiothoracic Vascular Surgery) | DX: E11.621 Type 2 diabetes mellitus with foot ulcer (principal); E11.52 Type 2 diabetes mellitus with diabetic peripheral angiopathy with gangrene; L97.516 Non-pressure chronic ulcer of other part of right foot with bone involvement without evidence of necrosis | CPT/HCPCS: 11044; 87070; 87176; 87205; 99203 ==

== ENCOUNTER 2024-09-03 10:06 | Outpatient (CLI) | payer MEDICARE, MEDICAID, SELFPAY ==
--- NOTE | 2024-09-03 10:09 | XR_ITS ---
WS: [id number] Right foot, 3 views, 09/03/2024 Clinical Data: E11.621 - Type 2 diabetes mellitus with foot ulcer Comparison: None. Findings: No fractures or dislocations are seen. There are numerous cystic changes throughout the right foot. The cystic changes are in the proximal and distal phalanges of the great toe and in the head of the right first metatarsal. There are cystic changes in the head of the right fifth metatarsal and proximal phalanx of the right fifth toe. The cystic changes are more consistent with osteoarthritis than osteomyelitis. The right fourth toe shows swelling but no bone destruction. There is osteoarthritic change of the tarsal bones. There is a plantar spur and a small Achilles spur. The soft tissues are unremarkable. XR/XR foot RT min 3V* [id number] Impression: 1. Cystic changes in the right great toe and right fifth toe. 2. Tarsal osteoarthritis. 3. No definite osteomyelitis of the right fourth toe.
[2024-09-03 10:29] LABS: Basophils # 0.1 10^3/uL (0.0-0.1); Basophils % 0.8 %; Eosinophils # 0.2 10^3/uL (0.0-0.8); Eosinophils % 2.3 %; Hematocrit 41.4 % (37-53); Lymphocytes # 1.7 10^3/uL (0.8-4.8); Lymphocytes % 20.3 %; Mean Corpuscular HGB Conc 31.9 g/dL (30-55); Mean Corpuscular Hemoglobin 28.9 pg (27-33); Mean Corpuscular Volume 90.6 fl (82-101); Mean Platelet Volume 9.4 fL (7.4-10.4); Monocytes # 0.5 10^3/uL (0.2-0.9); Monocytes % 6.5 %; Neutrophils # 5.83 10^3/uL (1.8-7.7); Neutrophils % 69.7 %; Nucleated Red Blood Cells % 0 %; Platelet Count 270 10^3/cmm (157-399); Red Blood Count 4.57 10^6/uL (3.85-5.65); Red Cell Distribution Width 12.3 % (12.1-15.1); White Blood Count 8.36 10^3/uL (3.29-11.43)
[2024-09-03 10:40] LABS: Estmated Average Glucose 134; Hemoglobin A1C 6.3 % (4.0-6.0)
[2024-09-03 10:45] LABS: Alanine Aminotransferase 22 U/L (0-41); Alkaline Phosphatase 92 U/L (40-130); Anion Gap 14.8 (5-19); Aspartate Amino Transferase 28 U/L (0-40); Blood Urea Nitrogen 25 mg/dL (8-23); C Reactive Protein 8.6 mg/L (0.0-4.9); Calcium 9.2 mg/dL (8.5-10.5); Carbon Dioxide 24 mmol/L (22-29); Chloride 103 mmol/L (98-107); Globulin 2.9 g/dL (1.3-4.6); Glucose 136 mg/dL (65-115); Osmolality Calculated 290 mOsm/kg (285-295); Potassium 4.8 mmol/L (3.5-5.1); Sodium 137 mmol/L (136-145); Total Bilirubin 0.3 mg/dL (0.15-1.2); Total Protein 6.9 g/dL (6.6-8.7)
== END 2024-09-03 10:07 | disposition home or self-care (01) ==
LOC: RAD 10:07
PROVIDERS: PCP Family Medicine; Visit Provider Thoracic Surgery (Cardiothoracic Vascular Surgery)
DX: E11.621 Type 2 diabetes mellitus with foot ulcer (principal); L97.519 Non-pressure chronic ulcer of other part of right foot with unspecified severity; R93.6 Abnormal findings on diagnostic imaging of limbs; M19.071 Primary osteoarthritis, right ankle and foot; M77.31 Calcaneal spur, right foot
CPT/HCPCS: 36415; 73630; 80053; 83036; 85025; 86140

== ENCOUNTER → 2024-09-07 10:03 | Outpatient (BNVA) | payer MEDICARE, MEDICAID, SELFPAY | PROVIDERS: PCP Family Medicine; Visit Provider Thoracic Surgery (Cardiothoracic Vascular Surgery) | DX: E11.52 Type 2 diabetes mellitus with diabetic peripheral angiopathy with gangrene (principal); E11.621 Type 2 diabetes mellitus with foot ulcer; L97.511 Non-pressure chronic ulcer of other part of right foot limited to breakdown of skin | CPT/HCPCS: 97597; A6197 ==

== ENCOUNTER 2024-09-09 10:10 | Outpatient (CLI) | payer MEDICARE, MEDICAID, SELFPAY ==
--- NOTE | 2024-09-09 10:15 | USR_ITS ---
PROCEDURE INFORMATION: Exam: US Duplex Right Lower Extremity Arteries Or Arterial Bypass Grafts Exam date and time: 09/09/2024 10:15 AM Age: 69 years old Clinical indication: Injury or trauma; Fall; Wound, open; Right; Ankle and foot level; Vessel not specified; Additional info: E11.621 - type 2 diabetes mellitus with foot ulcer TECHNIQUE: Imaging protocol: Right Real-time duplex scan of the arteries or arterial bypass grafts of the right lower extremity with 2-D marques scale, color Doppler flow and spectral waveform analysis. Images documented and saved. COMPARISON: CR XR foot RT min 3V* [id number] 09/03/2024 10:17 AM FINDINGS: Right common femoral artery: No occlusion or hemodynamically significant stenosis. Normal waveform. No pseudoaneurysm in the inguinal region. Right superficial femoral artery: No occlusion or hemodynamically significant stenosis. Normal waveform. Right popliteal artery: No occlusion or hemodynamically significant stenosis. Normal waveform. Right calf/foot arteries: There is occlusion of the right posterior tibial artery. There is diffuse disease but antegrade flow in the right anterior tibial artery/dorsalis pedis. Right lower extremity VINCE = 1 (normal, despite the right lower extremity tibial artery disease.) Soft tissues: No hematoma or collection. 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
== END 2024-09-09 10:11 | disposition home or self-care (01) ==
PROVIDERS: PCP Family Medicine; Visit Provider Thoracic Surgery (Cardiothoracic Vascular Surgery)
DX: E11.621 Type 2 diabetes mellitus with foot ulcer (principal); L97.509 Non-pressure chronic ulcer of other part of unspecified foot with unspecified severity; W19.XXXA Unspecified fall, initial encounter; I70.201 Unspecified atherosclerosis of native arteries of extremities, right leg
CPT/HCPCS: 93926

== ENCOUNTER → 2024-09-14 11:13 | Outpatient (BNVA) | payer MEDICARE, MEDICAID, SELFPAY | PROVIDERS: PCP Family Medicine; Visit Provider Thoracic Surgery (Cardiothoracic Vascular Surgery) | DX: E11.52 Type 2 diabetes mellitus with diabetic peripheral angiopathy with gangrene (principal); E11.621 Type 2 diabetes mellitus with foot ulcer; L97.511 Non-pressure chronic ulcer of other part of right foot limited to breakdown of skin | CPT/HCPCS: 97597; A6021 ==

== ENCOUNTER → 2024-09-21 13:02 | Outpatient (BNVA) | payer MEDICARE, MEDICAID, SELFPAY | PROVIDERS: PCP Family Medicine; Visit Provider Thoracic Surgery (Cardiothoracic Vascular Surgery) | DX: E11.52 Type 2 diabetes mellitus with diabetic peripheral angiopathy with gangrene (principal); E11.621 Type 2 diabetes mellitus with foot ulcer; L97.514 Non-pressure chronic ulcer of other part of right foot with necrosis of bone | CPT/HCPCS: 11044; 87070; 87077; 87176; 87186; 87205 ==

== ENCOUNTER → 2024-09-28 13:45 | Outpatient (BNVA) | payer MEDICARE, MEDICAID, SELFPAY | PROVIDERS: PCP Family Medicine; Visit Provider Thoracic Surgery (Cardiothoracic Vascular Surgery) | DX: E11.52 Type 2 diabetes mellitus with diabetic peripheral angiopathy with gangrene (principal); E11.621 Type 2 diabetes mellitus with foot ulcer; L97.512 Non-pressure chronic ulcer of other part of right foot with fat layer exposed | CPT/HCPCS: 11042 ==

== ENCOUNTER → 2024-09-29 14:30 | Outpatient (BNVA) | payer MEDICARE, MEDICAID, SELFPAY | PROVIDERS: PCP Family Medicine; Visit Provider Podiatrist Foot & Ankle Surgery | DX: E11.621 Type 2 diabetes mellitus with foot ulcer (principal); L97.514 Non-pressure chronic ulcer of other part of right foot with necrosis of bone; E11.42 Type 2 diabetes mellitus with diabetic polyneuropathy; L03.115 Cellulitis of right lower limb; Z79.84 Long term (current) use of oral hypoglycemic drugs | CPT/HCPCS: 11044; 73630; 99214 ==

== ENCOUNTER 2024-10-08 10:27 | Day surgery (SDC) | payer MEDICARE, MEDICAID, SELFPAY ==
[2024-10-08] VITALS (7 sets, daily range): BP systolic 91–116; BP diastolic 60–78; PULSE 67–82; RESP 14–18; TEMP 36.3–36.8; O2SAT 92–96; BMI 30.5
[2024-10-08 11:20] LABS: Glucose Point of Care 123 mg/dL (70-110)
[2024-10-08] MEDS: sodium chloride 0.9% 1,000 ML 30 ML IV (11:21)
--- NOTE | 2024-10-08 11:37 | W.PM.OPSUD ---
Surgery/Procedure H&P Update DATE OF PROCEDURE: October 08, 2024 DATE H&P PERFORMED: 09/29/24 H&P UPDATE INFORMATION: I have reviewed H&P completed within last 30 days, I have examined patient prior to procedure, No changes to prior documentation and Risks and benefits of the procedure reviewed PLANNED PROCEDURE: Operation Date: 10/08/24 12:30 Proposed Procedures p Amputation Toe/s(Right) - Jorden Sotelo DPM
--- NOTE | 2024-10-08 11:43 | P.ANESASSM_ITS ---
Pre-Anesthetic Assessment Height/Weight: Height 1.83 m Weight 102.058 kg Temp Pulse Resp BP Pulse Ox O2 Del Method 98.2 F 82 18 116/78 96 Room Air 10/08/24 10:53 10/08/24 10:53 10/08/24 10:53 10/08/24 10:53 10/08/24 10:53 10/08/24 10:53 Operation Date: 10/08/24 12:30 Proposed Procedures p Amputation Toe/s(Right) - Jorden Sotelo DPM Familial anesthetic complications: none Was Beta Donna taken within 24 hours: N/A Was Clonidine taken within 24 hours: N/A Last intake: Intake Last Liquid Date 10/07/24 Last Liquid Time 23:59 Last Solid Date 10/07/24 Last Solid Time 23:59 Social No alcohol and No tobacco Exam alert, oriented x 3 and regular rate & rhythm Airway Submandibular: within normal limits Cervical ROM: within normal limits Mallampati: Class II Dentition: false CV/HEM Hypertension Metabolic Diabetes Mellitus Musc/[facility] Osteoarthritis/DJD Neuropsych Neuropathy Anesthetic Plan ASA status: 3 Anesthesia: MAC Medications/Allergies Home Medications ?Medication ?Instructions ?Recorded ?Confirmed ?Last Taken ?Type Cam Boot to the Left foot #1 ea 06/06/22 09/29/24 Unkn own Rx mupirocin 2 % topical ointment 1 applic topical TID 10 days #15 07/31/23 10/07/24 10/07/24 Rx grams Diabetic Shoes with left foot toe #1 ea 09/30/2309/29 Unknown Rx filler and 3 pairs of inserts celecoxib 200 mg capsule (Celebrex) 200 mg PO BID #180 caps 07/13/24 10/07/24 10/07/24 Rx ezetimibe 10 mg tablet 10 mg PO DAILY #90 tabs 06/2410/07/24 10/07/24 Rx finasteride 5 mg tablet (Proscar) 5 mg PO DAILY #90 ta bs 07/13/24 10/07/24 10/07/24 Rx lisinopril 20 1 tab PO DAILY #90 tabs 06/2410/07/24 10/07/24 Rx mg-hydrochlorothiazide 12.5 mg tablet pregabalin 50 mg capsule 50 mg PO TID 60 days #180 ca ps 07/13/24 10/07/24 10/07/24 Rx metformin 850 mg tablet 850 mg PO BID #180 tabs 08/2110/07/24 10/07/24 Rx duloxetine 30 mg capsule,delayed 30 mg PO BID #60 caps 09/13/24 10/07/24 10/07/24 Rx release sulfamethoxazole 800 1 tab PO BID 10 days #20 tab s 09/29/24 10/07/24 10/07/24 Rx mg-trimethoprim 160 mg tablet tamsulosin 0.4 mg capsule 0.8 mg PO BID 10/07/2410/0710/07/24 History hydrocodone 5 mg-acetaminophen 325 1 tab PO Q12H PRN p ain 7 days #14 10/08/24 Unknown Rx mg tablet tabs Allergies Allergy/AdvReac Type Severity Reaction Status Date / Time atorvastatin Allergy Unknown Unknown Verified 09/29/24 14:24 Current Medications Generic Name Dose Route Start Last Admin Trade Name Freq PRN Reason Stop Dose Admin Sodium Chloride 1,000 mls @ 30 mls/hr 10/08/24 11:00 10/08/24 11:21 Sodium Chloride 0.9% IV 10/09/24 10:59 30 mls/hr .Q24H BRITT Administration PFSH Anesthesia Medical History Diabetic ulcer of right foot Amputation of left great toe Type 2 diabetes mellitus with diabetic foot infection Diabetic infection of left foot Gross hematuria Urinary retention Elevated PSA BPH loc w urin obs/LUTS Hypertension BPH (benign prostatic hyperplasia) Type 2 diabetes mellitus Surgical History S/P tonsillectomy Family History Mother , at age 60 Cancer colon Father , AT AGE 90 Alzheimer disease Social History Smoking and tobacco/nicotine status: never used tobacco/nicotine Alcohol intake: never Substance/Drug Use: never Marital status: Current occupational status: retired Data Anesthesia Cardiac Studies: No Data to Display
[2024-10-08] MEDS: ceFAZolin 2,000 mg SDV 2000 MG IVP (11:44)
[2024-10-08] MEDS: tranexamic acid 1,000 mg/10mL SDV 1000 MG IV (11:55)
[2024-10-08] MEDS: lidocaine 1% 10 ML INJ 20 ML INJECTION (11:56)
--- NOTE | 2024-10-08 12:11 | P.BOP_ITS ---
Date of Procedure: 09/05/23 Surgeon: Jorden Sotelo DPM Automatic Splicing Machine Operator(s): Kenney Procedure(s) performed: Right fourth toe amputation. Findings of the procedure(s): Osteomyelitis right fourth toe. Estimated blood loss: 5 mL Specimen(s) removed: Right fourth toe sent to pathology for permanent. Post-operative diagnosis: Osteomyelitis right fourth toe
--- NOTE | 2024-10-08 12:12 | P.OP_ITS ---
Operative Report Date of procedure: October 08, 2024 Pre-op diagnosis: ?Osteomyelitis right fourth toe L97.514 Post-op diagnosis: ?Osteomyelitis right fourth toe L97.514 Procedure done: Right fourth toe amputation. CPT code 76536 Implants: 3-0 Vicryl, 4 nylon Specimens removed/disposition: None cultures previously taken Pathology: Right fourth toe sent to pathology for permanent Surgeon: Jorden Sotelo DPM Die Cast Die Maker: Kenney Estimated blood loss: 5 9 IV fluids: see intraoperative documentation Urine output: No urine output Complications: No complications Brief History: X-ray right foot 3 view shows bony destruction of the intermediate phalanx and proximal base of the distal phalanx right fourth toe no soft tissue emphysema and no foreign body. Patient has acute osteomyelitis there is not responding to antibiotics and localized wound care. He will continue Bactrim, states that he is moving to [place] and he cannot have surgery this week timing humphrey this is his personal preference. For this reason he is scheduled for right fourth toe amput ation next Friday, October 08, 2024 can be outpatient. I advised patient should he have ascending redness foul drainage or experience fevers or chills he should be presenting to the emergency department. I reviewed at length with the patient, the risks, potential complications, benefits, alternatives, expectations, and typical outcomes associated with the surgery. The risks and potential complications were explained in detail, including but not limited to infection, wound dehiscence or soft tissue complications, bleeding and hematoma, chronic edema, neuritis or nerve damage producing numbness or chronic pain, CRPS, failure to relieve pain or worsening pain, thick / painful / unsightly scar, limited motion / stiffness, malposition, delayed union, malunion, or nonunion, fracture, reaction to implants, anesthetic complications, venous thromboembolism, and deformity recurrence. I discussed the notion of no regrets with the patient as it pertains to complications and outcomes. The patient seemed to understand the nature of the proposed care and required convalescence. They asked appropriate questions, answered to their satisfaction. They are aware no guarantees can be made as to a satisfactory outcome and they understand there may be other possible unforeseen complications or outcomes not listed here that will be treated accordingly if they arise. There were no written or implied guarantees given to the patient. They gave informed consent to proceed. Procedure: Under mild sedation the patient was brought to the operating room and remained on the gurney in supine position. A timeout was performed. Anesthesia was then administered by the anesthesia service. Local anesthesia injected by myself consisting of one-to-one mixture 1% lidocaine and 0.5% Marcaine plain total of 10 cc and a right fourth ray block fashion. Well-padded pneumatic tourniquet applied to the right ankle. The right lower extremity was then scrubbed, prepped and draped utilizing normal aseptic technique. Right foot was elevated and tourniquet inflated to 250 mmHg. Attention was directed to the right fourth toe noted to be devitalized with a full-thickness wound exposed bone that was soft end of dusky marques color. 2 converging vertical semielliptical incisions were performed at the base of the right fourth toe full-thickness down to bone and the right fourth toe was sharply disarticulated through the metatarsal phalangeal joint and passed from the operative field to be sent to pathology for permanent. All bleeders were ligated and cauterized as necessary. Extensor and flexor tendons were transected under traction. The incision was irrigated with copious amounts of sterile skin solution. Direct visualization of the right fourth metatarsal head appeared viable with appropriate color and density without defect, and adjacent soft tissues at the amputation level were viable. The incision was reapproximated with deep fascia reapproximated utilizing 3-0 Vicryl and skin with 4-0 nylon. Incision was dressed with Adaptic, sterile 4 x 4's, Kerlix and Isidro wrap followed by application of a cam boot to the right lower extremity. Tourniquet was deflated and a prompt hyperemic response is noted to the remaining digits of the right foot. Patient tolerated the procedure well and was transferred to the PACU with vital signs stable and vascular status intact. Following a period of postoperative monitoring to be discharged home without home care instructions and scheduled follow-up.
--- NOTE | 2024-10-08 13:20 | ANE.PACU2 ---
Inpatient post-anesthesia follow up: Airway intact: Yes Vital signs: Temperature 97.3 F Pulse Rate 75 Respiratory Rate 18 Blood Pressure 112/78 Pulse Oximetry 96 Oxygen Delivery Me thod Room Air Oxygen Flow Rate Fraction of Inspir ed Oxygen Hydration adequate: Yes Nausea and vomiting: No Pain level: 1 Mental status: Baseline
--- NOTE | 2024-10-08 13:32 | SUR.PHASEII ---
Patient and partner educated during d/c instructions that patient could not drive for 24 hours due to having anesthesia today. Patient also told in education to be non-weightbearing to right foot which he had his procedure on until seen in the clinic. Patient and partner verbalized understanding on this and signed paperwork. When ready to leave I asked partner to bring the vehicle to the front door. She said she would wait for him (patient). When wheeling him to his vehicle, he was taken to the passenger door. He was able to get into the passenger side without putting weight on surgical foot. Partner got into drivers side. When I got back into the entrance I waited at the door and watched the patient in his vehicle. After about 2 minutes the partner got out of the drivers side and went to passenger side where patient was getting out with cane. Patient then ambulated on surgical foot with cane to drivers side of truck and got in. Partner went to passenger side. Patient left in personal vehicle driving himself. This is reported to surgeon. I tried calling patient after seeing this and they did not answer.
== END 2024-10-08 13:20 | disposition home or self-care (01) ==
PROVIDERS: PCP Family Medicine; Visit Provider Podiatrist Foot & Ankle Surgery
PROC: (CPT 28820; principal; 2024-10-08 12:20)
DX: E11.69 Type 2 diabetes mellitus with other specified complication (principal); M86.8X7 Other osteomyelitis, ankle and foot; E11.621 Type 2 diabetes mellitus with foot ulcer; L97.514 Non-pressure chronic ulcer of other part of right foot with necrosis of bone; I10 Essential (primary) hypertension; M19.90 Unspecified osteoarthritis, unspecified site; Z79.84 Long term (current) use of oral hypoglycemic drugs; Z79.899 Other long term (current) drug therapy; Z88.8 Allergy status to other drugs, medicaments and biological substances; Z89.412 Acquired absence of left great toe; E11.42 Type 2 diabetes mellitus with diabetic polyneuropathy
CPT/HCPCS: 28820; 36416; 82962; 88305; 88311; J0690; J2704; J3010; J7030; J9999

== ENCOUNTER → 2024-10-14 10:18 | Outpatient (BNVA) | payer OTHER, MEDICAID, SELFPAY | PROVIDERS: PCP Family Medicine; Visit Provider Podiatrist Foot & Ankle Surgery | DX: Z89.421 Acquired absence of other right toe(s) (principal) | CPT/HCPCS: 99213 ==

== ENCOUNTER → 2024-10-19 09:07 | Outpatient (BNVA) | payer OTHER, SELFPAY | PROVIDERS: PCP Family Medicine; Visit Provider Podiatrist Foot & Ankle Surgery | DX: E11.621 Type 2 diabetes mellitus with foot ulcer (principal); L97.524 Non-pressure chronic ulcer of other part of left foot with necrosis of bone; Z89.421 Acquired absence of other right toe(s); E11.42 Type 2 diabetes mellitus with diabetic polyneuropathy; L03.116 Cellulitis of left lower limb | CPT/HCPCS: 11044; 36415; 73630; 80053; 85025; 85651; 86140; 87070; 87075; 87077; 87186; 87205; 99214 ==

== ENCOUNTER → 2024-10-21 09:19 | Outpatient (BNVA) | payer OTHER, SELFPAY | PROVIDERS: PCP Family Medicine; Visit Provider Podiatrist Foot & Ankle Surgery | DX: E11.621 Type 2 diabetes mellitus with foot ulcer (principal); Z89.421 Acquired absence of other right toe(s); L97.524 Non-pressure chronic ulcer of other part of left foot with necrosis of bone; L03.116 Cellulitis of left lower limb; Z79.84 Long term (current) use of oral hypoglycemic drugs | CPT/HCPCS: 11044; 99214 ==

== ENCOUNTER → 2024-10-25 07:53 | Outpatient (BNVA) | payer OTHER, SELFPAY | PROVIDERS: PCP Family Medicine; Visit Provider Podiatrist Foot & Ankle Surgery | DX: E11.621 Type 2 diabetes mellitus with foot ulcer (principal); L97.524 Non-pressure chronic ulcer of other part of left foot with necrosis of bone; L03.116 Cellulitis of left lower limb; Z89.421 Acquired absence of other right toe(s); Z79.84 Long term (current) use of oral hypoglycemic drugs | CPT/HCPCS: 73630; 99214 ==

== ENCOUNTER 2024-10-26 06:04 | Day surgery (SDC) | payer OTHER, SELFPAY ==
[2024-10-26] VITALS (7 sets, daily range): BP systolic 92–113; BP diastolic 56–71; PULSE 76–97; RESP 16–18; TEMP 36.1–36.5; O2SAT 93–99; BMI 28.5
[2024-10-26] MEDS: sodium chloride 0.9% 1,000 ML 30 ML IV (06:28)
[2024-10-26 06:34] LABS: Glucose Point of Care 106 mg/dL (70-110)
[2024-10-26] MEDS: vancomycin 1,500 MG/300 ML PIGGYBACK 200 MG IV (07:16)
--- NOTE | 2024-10-26 07:27 | ANES.PREANE2 ---
Pre-Anesthetic Assessment Height/Weight: Height 5 ft 11 in Weight 205 lb Temp Pulse Resp BP Pulse Ox O2 Del Method 97.3 F L 83 16 113/71 98 Room Air 10/26/24 06:18 10/26/24 06:18 10/26/24 06:18 10/26/24 06:18 10/26/24 06:18 10/26/24 06:18 Preop Diagnosis: Osteomyelitis left third toe Operation Date: 10/26/24 07:40 Proposed Procedures p Left third toe amputation(Left) - Jorden Sotelo, ANA ROSAM Was Beta Donna taken within 24 hours: N/A Was Clonidine taken within 24 hours: N/A Last intake: Intake Last Liquid Date 10/25/24 Last Liquid Time 23:39 Last Solid Date 10/25/24 Last Solid Time 23:39 Social No alcohol and No tobacco Exam alert, oriented x 3, clear to auscultation bilaterally and regular rate & rhythm Airway Submandibular: within normal limits Cervical ROM: within normal limits Mallampati: Class III Comments: Comments: Edentulous Anesthetic Plan ASA status: 3 Anesthesia: MAC Other: No prior issues with anesthesia NPO since yesterday evening History of hypertension on lisinopril?HCTZ Type 2 diabetes, preop BS 106 Recent labs performed, NA 132 at that time. CR 1.4 Prior EKG showing sinus rhythm Patient denies any pulmonary issues Plan for MAC anesthesia with local via surgeon Medications/Allergies Home Medications ?Medication ?Instructions ?Recorded ?Confirmed ?Last Taken ?Type Cam Boot to the Left foot #1 ea 06/06/22 10/25/24 Unknown Rx mupirocin 2 % topical ointment 1 applic topical TID 10 days #15 07/31/23 10/26/24 10/07/24 Rx grams Diabetic Shoes with left foot toe #1 ea 09/30/23 10/25/24 Unknown Rx filler and 3 pairs of inserts ezetimibe 10 mg tablet 10 mg PO DAILY #90 tabs 07/13/24 10/26/24 10/25/24 Rx finasteride 5 mg tablet (Proscar) 5 mg PO DAILY #90 tabs 07/13/24 10/26/24 10/25/24 Rx lisinopril 20 1 tab PO DAILY #90 tabs 07/13/24 10/26/24 10/25/24 Rx mg-hydrochlorothiazide 12.5 mg tablet metformin 850 mg tablet 850 mg PO BID #180 tabs 09/06/24 10/26/24 10/25/24 Rx duloxetine 30 mg capsule,delayed 30 mg PO BID #60 caps 09/13/24 10/26/24 10/25/24 Rx release tamsulosin 0.4 mg capsule 0.8 mg PO BID 10/07/24 10/26/24 10/25/24 History celecoxib 200 mg capsule (Celebrex) 200 mg PO BID #180 caps 10/12/24 10/26/24 10/25/24 Rx sulfamethoxazole 800 1 tab PO BID 10 days #20 tabs 10/18/24 10/26/24 10/25/24 Rx mg-trimethoprim 160 mg tablet (Bactrim DS) linezolid 600 mg tablet 600 mg PO DAILY 10/19/24 10/26/24 10/25/24 History Allergies Allergy/AdvReac Type Severity Reaction Status Date / Time atorvastatin Allergy Unknown Unknown Verified 10/25/24 08:03 Current Medications Generic Name Dose Route Start Last Admin Trade Name Freq PRN Reason Stop Dose Admin Sodium Chloride 1,000 mls @ 30 mls/hr 10/26/24 06:15 10/26/24 06:28 Sodium Chloride 0.9% IV 10/27/24 06:14 30 mls/hr .Q24H BRITT Administration Vancomycin HCl 1,500 mg in 300 mls @ 200 mls/hr 10/26/24 06:06 10/26/24 07:16 Vancocin IV 10/26/24 07:35 200 mls/hr TOP CASE ASSEMBLER ONE Administration Protocol [facility] Anesthesia Medical History Diabetic ulcer of right foot Amputation of left great toe Type 2 diabetes mellitus with diabetic foot infection Diabetic infection of left foot Gross hematuria Urinary retention Elevated PSA BPH loc w urin obs/LUTS Hypertension BPH (benign prostatic hyperplasia) Type 2 diabetes mellitus Surgical History History of amputation of right fourth toe S/P tonsillectomy Family History Mother , at age 60 Cancer colon Father , AT AGE 90 Alzheimer disease Social History Smoking and tobacco/nicotine status: never used tobacco/nicotine Alcohol intake: never Substance/Drug Use: never Marital status: Current occupational status: retired
--- NOTE | 2024-10-26 07:53 | W.PM.OPSUD ---
Surgery/Procedure H&P Update DATE OF PROCEDURE: October 26, 2024 DATE H&P PERFORMED: 10/25/24 H&P UPDATE INFORMATION: I have reviewed H&P completed within last 30 days, I have examined patient prior to procedure, No changes to prior documentation and Risks and benefits of the procedure reviewed PREOP DIAGNOSIS: Osteomyelitis left third toe PLANNED PROCEDURE: Operation Date: 10/26/24 07:40 Proposed Procedures p Left third toe amputation(Left) - Jorden Sotelo DPM
--- NOTE | 2024-10-26 08:33 | W.PM.BPON ---
Date of Procedure: 09/05/23 Surgeon: Jorden Sotelo DPM Body Shop Technician(s): Pk Procedure(s) performed: Left third toe amputation. Findings of the procedure(s): Osteomyelitis left third toe Estimated blood loss: 2 mL Specimen(s) removed: Left third toe sent to pathology for permanent. Post-operative diagnosis: Osteomyelitis left third toe
[2024-10-26] MEDS: BUPivacaine 0.5% INJ 30 mL XX (08:34)
[2024-10-26] MEDS: lidocaine 2% INJ 20 mL INJECTION (08:34)
--- NOTE | 2024-10-26 08:34 | P.OP_ITS ---
Operative Report Date of procedure: October 26, 2024 Pre-op diagnosis: Osteomyelitis left third toe. L97.524 Post-op diagnosis: Osteomyelitis left third toe. L97.524 Post-op findings: Devitalized soft tissue and bone left third toe. Procedure done: Left third toe amputation. CPT code 25075 Implants: 3-0 Vicryl, 4-0 nylon. Specimens removed/disposition: Cultures previously taken of bone left third toe Pathology: Left third toe sent to pathology for gross anatomical review Surgeon: Jorden Sotelo DPM Rural Service Engineer: Pk Estimated blood loss: 2 0 IV fluids: See intraoperative documentation Urine output: None Complications: None Brief History: Patient has cellulitis and acute osteomyelitis left third toe, x-ray shows reduction of distal phalanx left third toe. Patient would like to proceed with left third toe amputation and effort for source control has been on Bactrim for greater than 7 days and continues to have purulence, foul odor and cellulitis of the left third toe. I reviewed at length with the patient, the risks, potential complications, benefits, alternatives, expectations, and typical outcomes associated with the surgery. The risks and potential complications were explained in detail, including but not limited to infection, wound dehiscence or soft tissue complications, bleeding and hematoma, chronic edema, neuritis or nerve damage producing numbness or chronic pain, CRPS, failure to relieve pain o r worsening pain, thick / painful / unsightly scar, limited motion / stiffness, malposition, delayed union, malunion, or nonunion, fracture, reaction to implants, anesthetic complications, venous thromboembolism, and deformity recurrence. I discussed the notion of no regrets with the patient as it pertains to complications and outcomes. The patient seemed to understand the nature of the proposed care and required convalescence. They asked appropriate questions, answered to their satisfaction. They are aware no guarantees can be made as to a satisfactory outcome and they understand there may be other possible unforeseen complications or outcomes not listed here that will be treated accordingly if they arise. There were no written or implied guarantees given to the patient. They gave informed consent to proceed. Procedure: Under mild sedation the patient was brought to the operating room and remained on the gurney in supine position. Timeout was performed. Anesthesia was then administered by the anesthesia service. Local anesthesia injected by myself consisting of a total of 20 cc of one-to-one mixture 1% lidocaine and 0.5% Tanya ine plain in a left third ray block fashion. Well-padded pneumatic tourniquet applied to the left ankle, tourniquet was not utilized during the procedure. The left lower extremity was scrubbed, prepped and draped utilizing normal aseptic technique. Attention was directed to the left third toe which was noted to have a full- thickness wound probing directly to bone with devitalized soft tissue and bone appreciated intraoperatively had surrounding cellulitis, phalanx was dusky marques and of poor density. Full-thickness incision semielliptical and vertical converging incision performed full-thickness with a #15 blade through skin down to bone encompassing the left third metatarsal phalangeal joint and the left third toe was sharply disarticulated through the metatarsal phalangeal joint and passed from the operative field to be sent to pathology for gross anatomical review. The incision was irrigated with copious amounts of sterile saline solution. All bleeders were ligated and cauterized as necessary. Extensor and flexor tendons transected under traction. At the level of amputation through the metatarsal phalangeal joint adjacent soft tissue and the head of the left third metatarsal were of appropriate density and color without signs of infection. After further irrigation the incision was closed with subcutaneous and fascial planes reapproximated with 3-0 Vicryl and skin with 4-0 nylon. The incision was then dressed with Xeroform, sterile 4 x 4 gauze, Kerlix and Isidor wrap followed by application of a cam boot to the left lower extremity. Patient tolerated the procedure and anesthesia well and was transferred to the PACU with vital signs stable and vascular status intact. Following a period of postoperative monitoring he will be discharged home without home care ins tructions and scheduled follow-up.
--- NOTE | 2024-10-26 09:50 | ANE.PACU2 ---
Inpatient post-anesthesia follow up: Airway intact: Yes Vital signs: Temperature 97 F Pulse Rate 97 Respiratory Rate 16 Blood Pressure 108/62 Pulse Oximetry 99 Oxygen Delivery Me thod Room Air Oxygen Flow Rate Fraction of Inspir ed Oxygen Hydration adequate: Yes Nausea and vomiting: No Pain level: 1 Mental status: Baseline
--- NOTE | 2024-10-26 09:50 | PC.NURSE ---
Patient was here for appointed surgery with Dr. Stoelo pt had been to the dept prior and it had been reported that during the last visit the pt was observed switching places with his over the road driver and driving himself home after pt being educated that he could not be driving after receiving anesthesia. Pt understood that he was not suppose to be driving and his over the road driver agreed to drive home after todays appointment. pt finished up phase 2 recovery was given instruction on being non weight bearing on operative foot, plus no driving today because of receiving anesthesia and was wheeled out to his truck where he got into the passenger seat. It was then observed that the over the road driver had to come back into the hospital to use the bathroom once the over the road driver returned to the truck the patient got out of the passenger seat walking on his non weight bearing extremity and went to the drivers side and drove off.
== END 2024-10-26 09:50 | disposition home or self-care (01) ==
PROVIDERS: PCP Family Medicine; Visit Provider Podiatrist Foot & Ankle Surgery
PROC: (CPT 28820; principal; 2024-10-26 07:30)
DX: E11.69 Type 2 diabetes mellitus with other specified complication (principal); M86.8X7 Other osteomyelitis, ankle and foot; E11.621 Type 2 diabetes mellitus with foot ulcer; L97.524 Non-pressure chronic ulcer of other part of left foot with necrosis of bone; I10 Essential (primary) hypertension; L03.116 Cellulitis of left lower limb; Z79.899 Other long term (current) drug therapy; Z89.421 Acquired absence of other right toe(s); Z79.84 Long term (current) use of oral hypoglycemic drugs
CPT/HCPCS: 28820; 36416; 82962; 88305; 88311; J2704; J3010; J3370; J3490; J7030; J9999

== ENCOUNTER → 2024-10-28 09:25 | Outpatient (BNVA) | payer OTHER, SELFPAY | PROVIDERS: PCP Family Medicine; Visit Provider Podiatrist Foot & Ankle Surgery | DX: Z89.421 Acquired absence of other right toe(s) (principal); E11.9 Type 2 diabetes mellitus without complications; Z98.890 Other specified postprocedural states; Z89.422 Acquired absence of other left toe(s); Z79.84 Long term (current) use of oral hypoglycemic drugs | CPT/HCPCS: 99213 ==

== ENCOUNTER → 2024-11-04 09:36 | Outpatient (BNVA) | payer OTHER, SELFPAY | PROVIDERS: PCP Family Medicine; Visit Provider Podiatrist Foot & Ankle Surgery | DX: M20.41 Other hammer toe(s) (acquired), right foot (principal); E11.69 Type 2 diabetes mellitus with other specified complication; L03.115 Cellulitis of right lower limb; Z79.84 Long term (current) use of oral hypoglycemic drugs | CPT/HCPCS: 28010; 99214; J9999 ==

== ENCOUNTER → 2024-11-08 08:14 | Outpatient (BNVA) | payer OTHER, SELFPAY | PROVIDERS: PCP Family Medicine; Visit Provider Podiatrist Foot & Ankle Surgery | DX: Z98.890 Other specified postprocedural states (principal); Z89.421 Acquired absence of other right toe(s); Z89.422 Acquired absence of other left toe(s); E11.69 Type 2 diabetes mellitus with other specified complication; Z79.84 Long term (current) use of oral hypoglycemic drugs | CPT/HCPCS: 99213 ==

== ENCOUNTER → 2024-11-11 07:36 | Outpatient (BNVA) | payer OTHER, SELFPAY | PROVIDERS: PCP Family Medicine; Visit Provider Podiatrist Foot & Ankle Surgery | DX: E11.69 Type 2 diabetes mellitus with other specified complication (principal); Z89.421 Acquired absence of other right toe(s); Z89.422 Acquired absence of other left toe(s); Z79.84 Long term (current) use of oral hypoglycemic drugs | CPT/HCPCS: 99213 ==

== ENCOUNTER → 2024-11-17 08:02 | Outpatient (BNVA) | payer OTHER, SELFPAY | PROVIDERS: PCP Family Medicine; Visit Provider Podiatrist Foot & Ankle Surgery | DX: E11.69 Type 2 diabetes mellitus with other specified complication (principal); Z89.421 Acquired absence of other right toe(s); Z89.422 Acquired absence of other left toe(s); Z79.84 Long term (current) use of oral hypoglycemic drugs | CPT/HCPCS: 99213 ==

== ENCOUNTER → 2024-11-30 07:34 | Outpatient (BNVA) | payer OTHER, SELFPAY | PROVIDERS: PCP Family Medicine; Visit Provider Podiatrist Foot & Ankle Surgery | DX: E11.9 Type 2 diabetes mellitus without complications (principal); M20.41 Other hammer toe(s) (acquired), right foot; E11.69 Type 2 diabetes mellitus with other specified complication; Z79.84 Long term (current) use of oral hypoglycemic drugs | CPT/HCPCS: 28010 ==

== ENCOUNTER → 2024-12-07 13:24 | Outpatient (BNVA) | payer OTHER, SELFPAY | PROVIDERS: PCP Family Medicine; Visit Provider Family Medicine | DX: E11.9 Type 2 diabetes mellitus without complications (principal) | CPT/HCPCS: 80053; 83036; 85025 ==

== ENCOUNTER 2025-01-15 00:13 | Inpatient (IN) | payer OTHER, MEDICAID, SELFPAY ==
[2025-01-15] VITALS (11 sets, daily range): BP systolic 102–121; BP diastolic 48–75; PULSE 68–103; RESP 15–19; TEMP 36.3–36.9; O2SAT 95–99; BMI 28.5; BMI 4100.8
--- NOTE | 2025-01-15 00:21 | ECG_ITS ---
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 Measurements Intervals [place] Rate: 100 P: 81 AL: 149 QRS: 70 QRSD: 84 T: 67 QT: 309 QTc: 400 Interpretive Statements SINUS TACHYCARDIA Compared to ECG 06/06/2022 12:51:02 Sinus rhythm no longer present Electronically Signed On 01-15-2025 08:43:09 CDT by Paulo Rodgers M.D. [email or web address]
--- NOTE | 2025-01-15 00:26 | XRR_ITS ---
PROCEDURE INFORMATION: Exam: XR Chest Exam date and time: 01/15/2025 1:47 AM Age: 69 years old Clinical indication: Chest pressure; C/O chest pain; Additional info: Cp TECHNIQUE: Imaging protocol: Radiologic exam of the chest. Views: 1 view. COMPARISON: CR XR chest 1V portable [id number] 06/06/2022 10:33 AM FINDINGS: Lungs: Lungs are clear bilaterally. Pleural spaces: No pleural effusion. No pneumothorax. Heart/Mediastinum: Stable mild enlargement of the cardiac silhouette. Mediastinal contours are unremarkable. Vasculature: Stable vascular calcifications in the aorta. Bones/joints: Unremarkable for age. XR/XR chest 1V portable [id number] IMPRESSION: 1. No acute cardiopulmonary process. 2. Incidental/nonacute findings are listed in the report.
[2025-01-15 01:05] LABS: Hematocrit 36.6 % (37-53); Hemoglobin 12.20 g/dL (11.27-16.99); Mean Corpuscular HGB Conc 33.3 g/dL (30-55); Mean Corpuscular Hemoglobin 29.8 pg (27-33); Mean Corpuscular Volume 89.3 fl (82-101); Nucleated Red Blood Cells % 0 %; Platelet Count 264 10^3/cmm (157-399); Red Blood Count 4.10 10^6/uL (3.85-5.65); White Blood Count 10.73 10^3/uL (3.29-11.43)
[2025-01-15 01:14] LABS: Troponin(5th) Baseline 49 ng/L (0-15)
[2025-01-15 01:15] LABS: Alanine Aminotransferase 23 U/L (0-41); Albumin Level 4.0 g/dL (3.5-5.2); Alkaline Phosphatase 92 U/L (40-130); Anion Gap 25.0 (5-19); Aspartate Amino Transferase 35 U/L (0-40); Blood Urea Nitrogen 59 mg/dL (8-23); Calcium 9.4 mg/dL (8.5-10.5); Carbon Dioxide 14 mmol/L (22-29); Chloride 101 mmol/L (98-107); Creatinine Clr Calc Pharmacy 30.0496; Globulin 2.4 g/dL (1.3-4.6); Glucose 138 mg/dL (65-115); Osmolality Calculated 299 mOsm/kg (285-295); Potassium 5.0 mmol/L (3.5-5.1); Sodium 135 mmol/L (136-145); Total Protein 6.4 g/dL (6.6-8.7)
[2025-01-15 02:22] LABS: Lactic Sepsis W/Reflex 2.0 mmol/L (0.5-2.2)
--- NOTE | 2025-01-15 02:46 | ED_ITS ---
HPI - Chest Pain 2 General: Chief Complaint: Chest Pain Stated Complaint: cp Time Seen by Provider: 01/15/25 01:39 History of Present Illness: 69-year-old male patient. He tells me lakeshia jean has a history of seizure disorder. He was evidently running away from his significant other earlier in the evening, when he struck a fence in his yard, had a seizure, and developed chest discomfort. He was short of breath with his chest discomfort. Discomfort is resolved at this point. Mental status is back to baseline at this point. 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 Related Data Home Medications ?Medication ?Instructions ?Recorded ?Confirmed tamsulosin 0.4 mg capsule 0.8 mg PO BID 10/07/2401/15 Previous Rx's ?Medication ?Instructions ?Recorded finasteride 5 mg tablet (Proscar) 5 mg PO DAILY #90 ta bs 07/13/24 metformin 850 mg tablet 850 mg PO BID #180 tabs 08/21 01/14 celecoxib 200 mg capsule (Celebrex) 200 mg PO BID #180 caps 10/12/24 duloxetine 30 mg capsule,delayed 30 mg PO QDAY #90 cap s 12/07/24 release ezetimibe 10 mg tablet 10 mg PO DAILY #90 tabs 11/22 10/15 Diabetic Shoes with left foot toe #1 ea 12/21/24 filler and 3 pairs of inserts lisinopril 20 1 tab PO DAILY #90 tabs 12/22 08/17 mg-hydrochlorothiazide 12.5 mg tablet Allergies Allergy/AdvReac Type Severity Reaction Status Date / Time atorvastatin Allergy Unknown Unknown Verified 01/15/25 00:26 [facility] ED 2 [facility]: Medical History (Updated 01/15/25 @ 10:08 by Yandy Weaver MD) Diabetic ulcer of right foot Amputation of left great toe Type 2 diabetes mellitus with diabetic foot infection Diabetic infection of left foot Gross hematuria Urinary retention Elevated PSA BPH loc w urin obs/LUTS Hypertension BPH (benign prostatic hyperplasia) Type 2 diabetes mellitus Surgical History History of amputation of right fourth toe S/P tonsillectomy Family History Mother , at age 60 Cancer colon Father , AT AGE 90 Alzheimer disease Social History Smoking and tobacco/nicotine status: never used tobacco/nicotine Alcohol intake: never Substance/Drug Use: never Marital status: Current occupational status: retired Physical Exam 2 Const: GENERAL APPEARANCE: cooperative; not frail appearing HENMT: COMMON NORMALS: normocephalic, atraumatic and Normal external nose present HEAD & SCALP: normocephalic and atraumatic FACE & SINUS: normal facial exam and face symmetric NOSE: Normal external nose present Eye: COMMON NORMALS: Equal, round and reactive pupils present and EOMs intact bilaterally PUPIL: Yes Equal, round and reactive pupils present Neck/C-Spine: GENERAL: Yes trachea midline Chest: CHEST: Yes Symmetrical chest wall rise Resp: COMMON NORMALS: normal respiratory effort, No retractions, No use of accessory muscles and clear to auscultation bilaterally AUSCULTATION: clear to auscultation bilaterally Cardio: COMMON NORMALS: regular rate and regular rhythm RATE: regular rate RHYTHM: regular rhythm GI: COMMON NORMALS: Normal to inspection, nondistended, normoactive bowel sounds present Extremity: COMMON NORMALS: no pedal edema Neuro: CAMPBELL COMA SCALE: document GCS findings [place] coma scale eye opening: Spontaneous Campbell coma scale verbal response: Orientated Campbell coma scale motor response: Obey commands [place] coma scale total score: 15 S ENSORY EXAM: Yes extremities (intact) Psych: COMMON NORMALS: speech normal SPEECH: Yes normal speech Skin: COMMON NORMALS: no rashes or lesions noted GENERAL SKIN EXAM: no rashes or lesions noted Course 2 Vital Signs: Vital signs: Vital Signs Temperature 98.0 F 01/15/25 11:43 Pulse Rate 81 01/15/25 11:43 Respiratory Rate 17 01/15/25 11:43 Blood Pressure 121/67 01/15/25 11:43 Pulse Oximetry 95 01/15/25 11:43 Oxygen Delivery Me thod Room Air 01/15/25 11:43 MDM - Chest Pain Medical Decision Making This patient had chest discomfort at home. His mental status is baseline. Discomfort is resolved. His CBC is not remarkable. However, his creatinine is 2.7 with a BUN of 60. Bicarbonate level is 14. He was bolused 2 L of fluid. He is mildly hypotensive here. His lactic acid is only 2. Potassium is 5. His CK level was 498. First troponin is 50. He does not have any ST-T wave changes on EKG. He will be admitted for mild rhabdomyolysis with acute renal failure dehydration. Spoke with hospitalist. She agrees to admission. Lab Data 01/15/25 00:42 01/15/25 00:42 Radiology Impressions Chest X-Ray 01/15/25 00:26 IMPRESSION: 1. No acute cardiopulmonary process. 2. Incidental/nonacute findings are listed in the report. Abdomen/Pelvis CT 01/15/25 02:54 IMPRESSION: 1. Multiple small gallstones. Gallstones have increased in size and number compared with the previous study. 2. Stable diffuse, moderate bladder wall thickening. In the correct clinical setting, this may suggest cystitis. Recommend correlation with laboratory findings. Alternatively, this may be secondary to chronic outlet obstruction. 3. Stable marked enlargement of the prostate gland. 4. Large amount of fecal content in the colon. 5. Stable colonic diverticulosis. No evidence for diverticulitis. 6. Incidental/nonacute findings are listed in the report. Foot X-Ray 01/15/25 09:44 IMPRESSION: Findings suggestive of osteomyelitis of the distal phalanx of the 4th toe. Laboratory Results WBC 10.73 10^3/uL (3.29-11.43) 01/15/25 00:42 RBC 4.10 10^6/uL (3.85-5.65) 01/15/25 00:42 Hgb 12.20 g/dL (11.27-16.99) 01/15/25 00:42 Hct 36.6 % (37-53) L 01/15/25 00:42 MCV 89.3 fl (82-101) 01/15/25 00:42 MCH 29.8 pg (27-33) 01/15/25 00:42 MCHC 33.3 g/dL (30-55) 01/15/25 00:42 RDW 13.2 % (12.1-15.1) 01/15/25 00:42 Plt Count 264 10^3/cmm (157-399) 01/15/25 00:42 MPV 9.0 fL (7.4-10.4) 01/15/25 00:42 Neut % (Auto) 80.8 % 01/15/25 00:42 Lymph % (Auto) 10.6 % 01/15/25 00:42 Jessamine % (Auto) 6.2 % 01/15/25 00:42 Eos % (Auto) 1.3 % 01/15/25 00:42 Baso % (Auto) 0.7 % 01/15/25 00:42 Neut # (Auto) 8.66 10^3/uL (1.8-7.7) H 01/15/25 00:42 Lymph # (Auto) 1.1 10^3/uL (0.8-4.8) 01/15/25 00:42 Jessamine # (Auto) 0.7 10^3/uL (0.2-0.9) 01/15/25 00:42 Eos # (Auto) 0.1 10^3/uL (0.0-0.8) 01/15/25 00:42 Baso # (Auto) 0.1 10^3/uL (0.0-0.1) 01/15/25 00:42 Nucleated RBC % (auto) 0 % 01/15/25 00:42 Nucleated RBCs # 0.0 /100WBC 01/15/25 00:42 Sodium 135 mmol/L (136-145) L 01/15/25 00:42 Potassium 5.0 mmol/L (3.5-5.1) 01/15/25 00:42 Chloride 101 mmol/L (98-107) 01/15/25 00:42 Carbon Dioxide 14 mmol/L (22-29) L 01/15/25 00:42 Anion Gap 25.0 (5-19) H 01/15/25 00:42 BUN 59 mg/dL (8-23) H 01/15/25 00:42 Creatinine 2.7 mg/dL (0.7-1.2) H 01/15/25 00:42 GFR Calculation Not Reportable 01/15/25 00:42 Glucose 138 mg/dL (65-115) H 01/15/25 00:42 Estimat Average Glucose 134 01/15/25 00:42 Hemoglobin A1c 6.3 % (4.0-6.0) H 01/15/25 00:42 Calculated Osmolality 299 mOsm/kg (285-295) H 01/15/25 00:42 Lactic Acid 2.0 mmol/L (0.5-2.2) 01/15/25 01:57 Calcium 9.4 mg/dL (8.5-10.5) 01/15/25 00:42 Iron 21 ug/dL (59-158) L 01/15/25 00:42 TIBC 212 mcg/dl 01/15/25 00:42 % Saturation 9.9 % (20-50) L 01/15/25 00:42 Unsat Iron Binding 191 ug/dL (112-347) 01/15/25 00:42 Total Bilirubin 0.3 mg/dL (0.15-1.2) 01/15/25 00:42 AST 35 U/L (0-40) 01/15/25 00:42 ALT 23 U/L (0-41) 01/15/25 00:42 Alkaline Phosphatase 92 U/L (40-130) 01/15/25 00:42 Creatine Kinase 498 U/L (39-308) H* 01/15/25 01:57 Troponin T Baseline 49 ng/L (0-15) H 01/15/25 00:42 Troponin T 120 Minute 40.87 ng/L (0-15) H 01/15/25 02:37 Delta Troponin T -8.13 ABS# (0-10) L 01/15/25 02:37 Total Protein 6.4 g/dL (6.6-8.7) L 01/15/25 00:42 Albumin 4.0 g/dL (3.5-5.2) 01/15/25 00:42 Globulin 2.4 g/dL (1.3-4.6) 01/15/25 00:42 Vitamin B12 408 pg/mL (232-1245) 01/15/25 00:42 Procalcitonin 0.78 ng/mL (0-0.5) H 01/15/25 00:42 TSH 1.84 uIU/mL (0.27-4.20) 01/15/25 00:42 Ethyl Alcohol < 10 mg/dL (0-10) 01/15/25 02:09 Hepatitis A IgM Ab Non-reactive (Nonreactive) 01/15/25 00:42 Hep Bs Antigen Non-reactive (Nonreactive) 01/15/25 00:42 Hep Bs Antibody < 3.5 (11.5-1000) L 01/15/25 00:42 Hep B Core Total Ab Non-reactive (Nonreactive) 01/15/25 00:42 Hepatitis C Antibody Non-reactive (Nonreactive) 01/15/25 00:42 HIV 1&2 Ab & HIV 1 Ag Non-reactive (Non-Reactiv) 01/15/25 00:42 HIV 1&2 Antibody Non-reactive (Non-Reactiv) 01/15/25 00:42 All radiology interpretation(s) finalized by discharge Discharge Plan Discharge Patient Disposition: Admitted As Inpatient Admit Provider: Yandy Weaver Clinical Impression: Acute renal failure, Rhabdomyolysis Condition: Stable Coding Level of Care Code ED Video Conference Specialist for Richard Sadler
--- NOTE | 2025-01-15 02:50 | ECG_ITS ---
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 Measurements Intervals [place] Rate: 74 P: 94 CA: 157 QRS: 76 QRSD: 86 T: 72 QT: 362 QTc: 402 Interpretive Statements SINUS RHYTHM Compared to ECG 06/06/2022 12:51:02 No significant changes Electronically Signed On 01-15-2025 08:40:50 CDT by Paulo Rodgers M.D. [email or web address]
--- NOTE | 2025-01-15 02:54 | CTR_ITS ---
PROCEDURE INFORMATION: Exam: CT Abdomen And Pelvis Without Contrast Exam date and time: 01/15/2025 3:25 AM Age: 69 years old Clinical indication: Abnormal findings; Abnormal lab test; Abnormal kidney function lab tests; Robinson. History of bph. ; Additional info: Robinson, robinson CR 2.7, h/o enlarged prostate, assess for obstructive TECHNIQUE: Imaging protocol: Computed tomography of the abdomen and pelvis without contrast. Sagittal and coronal reformatted images were also reviewed. Radiation optimization: All CT scans at this facility use at least one of these dose optimization techniques: automated exposure control; mA and/or kV adjustment per patient size (includes targeted exams where dose is matched to clinical indication); or iterative reconstruction. COMPARISON: CT abdomen pelvis wo/w [id number] 10/30/2020 9:40 AM RADIATION DOSE METRICS: Total DLP (mGy-cm): 579.08 FINDINGS: Lungs: Visualized lungs are clear. Pleural spaces: No pleural effusion. Heart: Stable mild enlargement of the visualized portions of the heart. Coronary arteries: Moderate atherosclerotic calcification in the visualized coronary arteries. Liver: The liver is unremarkable. Gallbladder and biliary ducts: Multiple small gallstones. Gallstones have increased in size and number compared with the previous study. No gallbladder wall thickening. No biliary ductal dilatation. Pancreas: The pancreas is unremarkable. No pancreatic ductal dilatation. Spleen: The spleen is unremarkable. Adrenal glands: The right and left adrenal glands are unremarkable. Kidneys and ureters: Simple cyst in the right kidney is stable in size measuring 4.1 cm. Stable subcentimeter hypodense foci in the right kidney that are too small to characterize, however likely represent small cysts. The left kidney is unremarkable. The right and left ureters are unremarkable. No hydroureteronephrosis. No calcified urolithiasis. Stomach and bowel: Large amount of fecal content in the colon. Stable diverticula throughout the colon. No evidence for diverticulitis. No acute abnormality in the stomach. No acute abnormality in the small bowel. Appendix: The appendix is visualized and is unremarkable. No findings to suggest acute appendicitis. Intraperitoneal space: No free intraperitoneal air. No ascites. No loculated fluid collections to suggest an abscess. Vasculature: Stable [id number] atherosclerotic changes in the visualized arteries. No evidence for aortic aneurysm. Lymph nodes: No lymphadenopathy. Urinary bladder: Stable diffuse, moderate bladder wall thickening. Reproductive: Stable marked enlargement of the prostate gland. Nonspecific parenchymal calcifications in the prostate gland. Bones/joints: Degenerative changes in the spine, sacroiliac joints, and hips. Soft tissues: No acute abnormality in the extra-abdominal soft tissues. CT/CT kidney stone [id number] IMPRESSION: 1. Multiple small gallstones. Gallstones have increased in size and number compared with the previous study. 2. Stable diffuse, moderate bladder wall thickening. In the correct clinical setting, this may suggest cystitis. Recommend correlation with laboratory findings. Alternatively, this may be secondary to chronic outlet obstruction. 3. Stable marked enlargement of the prostate gland. 4. Large amount of fecal content in the colon. 5. Stable colonic diverticulosis. No evidence for diverticulitis. 6. Incidental/nonacute findings are listed in the report.
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
[2025-01-15 02:59] LABS: Troponin 5 2HR 40.87 ng/L (0-15)
[2025-01-15 03:02] LABS: Troponin 5 2HR Delta -8.13 ABS# (0-10)
[2025-01-15] MEDS: heparin 5,000 unit/mL INJ 1 mL 5000 UNIT SUBCUT ×2 (03:05→15:25)
[2025-01-15 03:47] LABS: Alcohol Level < 10 mg/dL (0-10)
[2025-01-15 03:54] LABS: HIV 1 & 2 Antigen Non-Reactive (Non-Reactiv)
[2025-01-15 04:06] LABS: Glucose Urine UA Negative (Normal); Nitrate Urine Negative (Negative); Specific Gravity, Urine 1.019 (1.005-1.030)
[2025-01-15 04:06] LABS: Hepatitis A Antibody IgM Non-Reactive (Nonreactive); Hepatitis B Surface Antigen Non-Reactive (Nonreactive)
[2025-01-15 04:11] LABS: Add Urine Microscopic? YES
[2025-01-15 04:22] LABS: UA Slide Review UA Slide Review Perf
[2025-01-15 04:51] LABS: PCP Screen Urine Negative (Negative)
--- NOTE | 2025-01-15 06:26 | ECG_ITS ---
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 Measurements Intervals Ezel Rate: 80 P: 96 ID: [id number] QRS: 63 QRSD: 81 T: 63 QT: 354 QTc: 408 Interpretive Statements SINUS RHYTHM WITH OCCASIONAL VENTRICULAR PREMATURE COMPLEXES Compared to ECG 01/15/2025 02:50:38 Ventricular premature complex(es) now present Electronically Signed On 01-15-2025 08:42:30 CDT by Paulo Rodgers M.D. [email or web address]
[2025-01-15 07:21] LABS: Troponin 5 6HR 28.58 ng/L (0-15)
[2025-01-15 07:22] LABS: Troponin 5 6HR Delta -20.42 ng/L (0-12)
--- NOTE | 2025-01-15 09:44 | XRR_ITS ---
PROCEDURE INFORMATION: Exam: XR Left Foot Exam date and time: 01/15/2025 12:16 PM Age: 69 years old Clinical indication: Other: Fourth toe ulcer to bone TECHNIQUE: Imaging protocol: Radiologic exam of the left foot. Views: 3 or more views. COMPARISON: CR XR foot LT min 3V* [id number] 10/25/2024 8:37 AM FINDINGS: Bones/joints: Post amputation of the 1st and 3rd toes at the level of the metatarsophalangeal joints. Bone loss of the distal phalanx of the 2nd toe. Erosion of the distal phalanx of the 4th toe. Chronic mild degenerative changes of the midfoot. There is a noninflamed plantar enthesophyte. There is a noninflamed Achilles enthesophyte. Soft tissues: Soft tissue defect overlying the tip of the 4th toe. Vasculature: Calcified atheromas of the visualized arteries. XR/XR foot LT min 3V* [id number] IMPRESSION: Findings suggestive of osteomyelitis of the distal phalanx of the 4th toe.
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
[2025-01-15 10:21] LABS: Estmated Average Glucose 134; Hemoglobin A1C 6.3 % (4.0-6.0)
[2025-01-15 11:00] LABS: Procalcitonin 0.78 ng/mL (0-0.5); Thyroid Stimulating Hormone 1.84 uIU/mL (0.27-4.20); Vitamin B12 408 pg/mL (232-1245)
[2025-01-15 11:14] LABS: Iron 21 ug/dL (59-158); Total Iron Binding Capacity 212 mcg/dl; Unsaturated Iron Binding 191 ug/dL (112-347)
[2025-01-16] VITALS (9 sets, daily range): BP systolic 100–134; BP diastolic 59–73; PULSE 67–78; RESP 18–20; TEMP 36.6–36.8; O2SAT 94–97
[2025-01-16] MEDS: heparin 5,000 unit/mL INJ 1 mL 5000 UNIT SUBCUT ×2 (02:59→16:58)
[2025-01-16 05:20] LABS: Hematocrit 33.4 % (37-53); Hemoglobin 10.60 g/dL (11.27-16.99); Mean Corpuscular HGB Conc 31.7 g/dL (30-55); Mean Corpuscular Hemoglobin 29.2 pg (27-33); Mean Corpuscular Volume 92.0 fl (82-101); Nucleated Red Blood Cells % 0 %; Platelet Count 217 10^3/cmm (157-399); Red Blood Count 3.63 10^6/uL (3.85-5.65); White Blood Count 8.27 10^3/uL (3.29-11.43)
[2025-01-16 05:35] LABS: Cholesterol 105 mg/dL (0-200); HDL Cholesterol 38 mg/dL (60-100); Magnesium 1.4 mg/dL (1.7-2.3); Triglycerides 84 mg/dL (0-150); VLDL Cholestrol Calculation 17 mg/dL (0-30)
[2025-01-16 05:36] LABS: Alanine Aminotransferase 20 U/L (0-41); Albumin Level 3.5 g/dL (3.5-5.2); Alkaline Phosphatase 75 U/L (40-130); Anion Gap 14.6 (5-19); Aspartate Amino Transferase 21 U/L (0-40); Blood Urea Nitrogen 28 mg/dL (8-23); Calcium 8.9 mg/dL (8.5-10.5); Carbon Dioxide 21 mmol/L (22-29); Chloride 107 mmol/L (98-107); Creatinine Clr Calc Pharmacy 83.5044; Globulin 2.6 g/dL (1.3-4.6); Glucose 150 mg/dL (65-115); Osmolality Calculated 294 mOsm/kg (285-295); Potassium 4.6 mmol/L (3.5-5.1); Sodium 138 mmol/L (136-145); Total Protein 6.1 g/dL (6.6-8.7)
--- NOTE | 2025-01-16 08:42 | PHA.VACGOAL ---
Vancomycin Goal - Goal Vancomycin Goal:: 10-15 mg/L Vancomycin Indication:: Other - Therapy Current therapy:: Pip/Tazo Day of therpy:: Day []of [] . Actual body weight (kg): 192 lb 1.6 oz - Data Labs: WBC 8.27 10^3/uL (3.29-11.43) 01/16/25 04:17 RBC 3.63 10^6/uL (3.85-5.65) L 01/16/25 04:17 Hgb 10.60 g/dL (11.27-16.99) L 01/16/25 04:17 Hct 33.4 % (37-53) L 01/16/25 04:17 MCV 92.0 fl (82-101) 01/16/25 04:17 MCH 29.2 pg (27-33) 01/16/25 04:17 MCHC 31.7 g/dL (30-55) 01/16/25 04:17 RDW 13.4 % (12.1-15.1) 01/16/25 04:17 Sodium 138 mmol/L (136-145) 01/16/25 04:17 Potassium 4.6 mmol/L (3.5-5.1) 01/16/25 04:17 Chloride 107 mmol/L (98-107) 01/16/25 04:17 Carbon Dioxide 21 mmol/L (22-29) L 01/16/25 04:17 Anion Gap 14.6 (5-19) 01/16/25 04:17 BUN 28 mg/dL (8-23) H 01/16/25 04:17 Creatinine 1.0 mg/dL (0.7-1.2) 01/16/25 04:17 GFR Calculation Not Reportable 01/16/25 04:17 Last dialysis session:: N/A Treatment plan:: new consult Regimen:: STARTING MAINTENANCE DOSE OF 1500 MG Q12H PER DOSING PROTOCOL. Follow up:: WILL CONTINUE TO MONITOR AND FOLLOW UP DAILY
[2025-01-16] MEDS: piperacillin-tazobactam 3.375 GM in sodium chloride 0.9% (plus) 50 ML IV ×2 (10:43→18:36)
[2025-01-16 11:36] LABS: MRSA PCR OZH (swab) NOT DETECTED (Negative)
--- NOTE | 2025-01-16 12:55 | P.PN_ITS ---
Subjective 2 Subjective: No acute events overnight. Patient has remained hemodynamically stable and afebrile. Complaining of pain in the left knee especially when he is not trying to walk. States he is not able to put weight on his knee. Denies any nausea, vomiting, headache. Vitals/I&O/Wt Last Vital Signs Temp 98.0 F 01/16/25 11:03 Pulse 72 01/16/25 11:03 Resp 19 H 01/16/25 11:03 BP 115/73 01/16/25 11:03 Pulse Ox 97 01/16/25 11:03 O2 Del Method Room Air 01/16/25 11:03 01/15/25 01/16/25 01/16/25 22:59 06:59 14:59 Intake Total 1203.75 / 2563.75 2887 / 5450.75 1440 / 1440 Output Total 950 / 2500 675 / 3175 2200 / 2200 Balance 253.75 / 63.75 2212 / 2275.75 -760 / -760 Weight last 48 hrs Weight 87.135 kg Weight 82.826 kg Weight 95.254 kg Weight 95.254 kg Physical Exam 2 Narrative: General: No acute distress, AO x3 HEENT: PERRLA, pupils bilaterally equal and reactive, pallors not present Chest: Normal vesicular breath sounds, no added sounds, equal good air entry bilaterally CVS: S1-S2 regular, no murmurs, no tachycardia, no gallops, no rubs Abdomen: Soft, nontender, no organomegaly, bowel sounds present Neuro: No focal deficits, no facial deformity, AO x3, power 5/5 in all limbs EXT: s/p amputation of several toes. ulcer as noted above Data 01/16/25 04:17 01/16/25 04:17 Micro: Microbiology 01/15/25 03:56 Urine Culture - Preliminary Urine,Clean Catch 01/15/25 11:14 Blood Culture - Preliminary Blood NEGATIVE TO DATE 01/15/25 11:08 Blood Culture - Preliminary Blood NEGATIVE TO DATE 01/15/25 10:00 Gram Stain - Final Toe - Left Second A&P Assessment and plan 1. ABDIEL (acute kidney injury): Most likely in setting of dehydration from poor oral intake, rhabdomyolysis, heat exhaustion. Resolved. Continue with NS at 50 cc/h. Urine drug screen, alcohol level negative. Hepatitis level negative. Obstructive nephropathy ruled out on admission. Abdiel with cr at 2.7 today Known h/o BPH, states he has an appointment with urology in [facility] for a ?prostate biopsy In March Was followed by Dr. Hernandez previously until his [place] [facility]. Continue with Flomax twice daily at home dose. 2. Diabetic foot ulcer: Appreciate podiatry recommendations. Appreciate foot x-ray. Concerning for fourth toe osteomyelitis. Plan for amputation in AM. N.p.o. after midnight. Follow-up blood culture. Check MRSA swab. Empirically start on IV vancomycin and Zosyn. Patient will need to be discharged on oral antibiotics postoperatively. 3. Osteomyelitis: 4. Type 2 diabetes mellitus without complication, without long-term current use of insulin: A1c of 6.3. Continue with insulin sliding scale. Patient takes metformin 850 mg twice daily at home. 5. Sunburn: calamine lotion topically 6. Rhabdomyolysis: Resolving. Plan: DVT ppx: heparin 5000 s/c q12h Full code Carb consistent diet. N.p.o. after midnight. PDMP PDMP Reviewed: Not Reviewed Attestations 2 Medical Necessity Statement*: Requires further hospitalization for management of rhabdomyolysis, ABDIEL, osteomyelitis of left fourth toe Diagnoses ABDIEL (acute kidney injury) N17.9 Diabetic foot ulcer E11.621; L97.509 Osteomyelitis M86.9 Type 2 diabetes mellitus without complication, without long-term current use of insulin E11.9 Diabetes mellitus retirement insulin use: without retirement use Diabetes mellitus complication status: without complication Sunburn L55.9 Rhabdomyolysis M62.82
--- NOTE | 2025-01-16 12:58 | XRR_ITS ---
PROCEDURE INFORMATION: Exam: XR Left Knee Exam date and time: 01/16/2025 1:06 PM Age: 69 years old Clinical indication: Pain; Knee; Left; Additional info: Pain on flexion TECHNIQUE: Imaging protocol: Radiologic exam of the left knee. Views: 3 views. COMPARISON: No relevant prior studies available. FINDINGS: Bones/joints: No fracture or other acute abnormality. There is [id number] medial compartment joint space narrowing with associated small periarticular osteophytes. Soft tissues: Normal. Vasculature: There are arterial calcifications. XR/XR knee LT 3V* [id number] IMPRESSION: Nonacute findings.
--- NOTE | 2025-01-16 16:46 | PM.PN ---
Subjective Subjective: Patient seen bedside this afternoon, is in good spirits. His life partner Kassandra is present. Vitals/I&O/Wt Last Vital Signs Temp 98.3 F 01/16/25 16:20 Pulse 75 01/16/25 16:20 Resp 20 H 01/16/25 16:20 BP 100/59 01/16/25 16:20 Pulse Ox 97 01/16/25 16:20 O2 Del Method Room Air 01/16/25 16:20 01/16/25 01/16/25 01/16/25 06:59 14:59 22:59 Intake Total 2887 / 5450.75 1490 / 1490 240 / 1730 Output Total 675 / 3175 2200 / 2200 500 / 2700 Balance 2212 / 2275.75 -710 / -710 -260 / -970 Weight last 48 hrs Weight 192 lb 1.6 oz Weight 182 lb 9.6 oz Weight 210 lb Weight 210 lb Physical Exam Narrative: GENERAL: Patient is alert and oriented ?3 and in no acute distress. The following is a focused bilateral lower extremity exam. VASCULAR: Dorsalis pedis and posterior tibial arteries palpable +2. Capillary refill time less than 3 seconds to the distal hallux bilaterally. Calf is supple and nontender proximally and distally. Mild edema at the operative site consistent with postoperative course. NEUROLOGICAL: Protective sensation intact to light touch. DERMATOLOGICAL: Full-thickness wound exposed to bone able to probe to distal phalanx at the right fourth toe with surrounding devitalized tissue as fibrotic base, no purulence and no erythema. No crepitus with soft tissue palpation. 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 Tenderness to palpation right fourth toe. Data 01/16/25 04:17 01/16/25 04:17 Micro: Microbiology 01/15/25 10:00 Gram Stain - Final Toe - Left Second Wound Culture - Preliminary 01/15/25 03:56 Urine Culture - Preliminary Urine,Clean Catch 01/15/25 11:14 Blood Culture - Preliminary Blood NEGATIVE TO DATE 01/15/25 11:08 Blood Culture - Preliminary Blood NEGATIVE TO DATE A&P Assessment and plan 1. Type 2 diabetes mellitus with diabetic foot infection: 2. Chronic ulcer of left foot with necrosis of bone: Patient would like to proceed with left fourth toe amputation. I reviewed at length with the patient, the risks, potential complications, benefits, alternatives, expectations, and typical outcomes associated with the surgery. The risks and potential complications were explained in detail, including but not limited to infection, wound dehiscence or soft tissue complications, bleeding and hematoma, chronic edema, neuritis or nerve damage producing numbness or chronic pain, CRPS, failure to relieve pain or worsening pain, thick / painful / unsightly scar, limited motion / stiffness, malposition, delayed union, malunion, or nonunion, fracture, reaction to implants, anesthetic complications, venous thromboembolism, and deformity recurrence. I discussed the notion of no regrets with the patient as it pertains to complications and outcomes. The patient seemed to understand the nature of the proposed care and required convalescence. They asked appropriate questions, answered to their satisfaction. They are aware no guarantees can be made as to a satisfactory outcome and they understand there may be other possible unforeseen complications or outcomes not listed here that will be treated accordingly if they arise. There were no written or implied guarantees given to the patient. They gave informed consent to proceed. Plan: 69-year-old male admitted to the hospital service for RAMA and rhabdomyolysis. He is found to have acute osteomyelitis of the distal phalanx left fourth toe. Left fourth toe postdebridement wound culture 01/15/2025 pending Dressing change silver alginate, gauze, Kerlix and Isidro wrap. Patient is not septic, stable appearing localized infection to the left fourth toe, scheduled left fourth toe amputation for tomorrow 01/17/2025 at noon, to be n.p.o. at midnight on Friday night. Podiatry will follow. PDMP PDMP Reviewed: Not Reviewed Attestations Medical Necessity Statement*: Acute osteomyelitis left fourth toe distal phalanx, patient scheduled for surgical amputation 01/17/2025 requires continued IV antibiotics. Coding Level of Care Code Acute Code for [facility] Fwd Diagnoses Type 2 diabetes mellitus with diabetic foot infection E11.628; L08.9 Chronic ulcer of left foot with necrosis of bone L97.524
[2025-01-17] VITALS (17 sets, daily range): BP systolic 94–162; BP diastolic 56–83; PULSE 52–93; RESP 10–18; TEMP 36.1–36.7; O2SAT 92–100
[2025-01-17] MEDS: piperacillin-tazobactam 3.375 GM in sodium chloride 0.9% (plus) 50 ML IV ×3 (02:21→21:59)
[2025-01-17] MEDS: heparin 5,000 unit/mL INJ 1 mL 5000 UNIT SUBCUT ×2 (02:21→14:47)
[2025-01-17 05:35] LABS: Hematocrit 33.1 % (37-53); Hemoglobin 10.60 g/dL (11.27-16.99); Mean Corpuscular HGB Conc 32.0 g/dL (30-55); Mean Corpuscular Hemoglobin 29.2 pg (27-33); Mean Corpuscular Volume 91.2 fl (82-101); Nucleated Red Blood Cells % 0 %; Platelet Count 225 10^3/cmm (157-399); Red Blood Count 3.63 10^6/uL (3.85-5.65); White Blood Count 6.37 10^3/uL (3.29-11.43)
[2025-01-17 05:53] LABS: Alanine Aminotransferase 15 U/L (0-41); Albumin Level 3.4 g/dL (3.5-5.2); Alkaline Phosphatase 72 U/L (40-130); Anion Gap 15.6 (5-19); Aspartate Amino Transferase 14 U/L (0-40); Blood Urea Nitrogen 15 mg/dL (8-23); Calcium 8.8 mg/dL (8.5-10.5); Carbon Dioxide 22 mmol/L (22-29); Chloride 108 mmol/L (98-107); Creatinine Clr Calc Pharmacy 92.3003; Globulin 2.7 g/dL (1.3-4.6); Glucose 98 mg/dL (65-115); Magnesium 1.1 mg/dL (1.7-2.3); Osmolality Calculated 293 mOsm/kg (285-295); Potassium 4.6 mmol/L (3.5-5.1); Sodium 141 mmol/L (136-145); Total Protein 6.1 g/dL (6.6-8.7)
--- NOTE | 2025-01-17 08:07 | PC.NURSE ---
This nurse gave report to JESUS Quintero in pre-op at 806am.
--- NOTE | 2025-01-17 11:34 | ANES.PREANE2 ---
Pre-Anesthetic Assessment Height/Weight: Height 6 in Weight 191 lb 1.6 oz Temp Pulse Resp BP Pulse Ox O2 Del Method 98.1 F 76 16 128/83 100 Room Air 01/17/25 07:37 01/17/25 07:37 01/17/25 07:37 01/17/25 07:37 01/17/25 07:37 01/17/25 07:37 Preop Diagnosis: Osteomyelitis left fourth toe Operation Date: 01/17/25 12:10 Proposed Procedures p Left Fourth Toe Amputation(Left) - Jorden Sotelo DPM Was Beta Donna taken within 24 hours: N/A Was Clonidine taken within 24 hours: N/A Last intake: Intake Last Liquid Date 01/16/25 Last Solid Date 01/16/25 Social No alcohol and No tobacco Exam alert, oriented x 3, clear to auscultation bilaterally and regular rate & rhythm Airway Submandibular: within normal limits Cervical ROM: within normal limits Mallampati: Class III Comments: Comments: edentulous Anesthetic Plan ASA status: 3 Anesthesia: MAC Other: No prior issues with anesthesia NPO since yesterday evening History of hypertension on lisinopril?HCTZ Type 2 diabetes, preop BS 98 Recent labs reviewed Prior EKG showing sinus rhythm with occasional PVCs Patient denies any pulmonary issues Plan for MAC anesthesia with local via surgeon Medications/Allergies Home Medications ?Medication ?Instructions ?Recorded ?Confirmed ?Last Taken ?Type finasteride 5 mg tablet (Proscar) 5 mg PO DAILY #90 tabs 07/13/24 01/15/25 01/14/25 Rx metformin 850 mg tablet 850 mg PO BID #180 tabs 09/06/24 01/15/25 01/14/25 Rx tamsulosin 0.4 mg capsule 0.8 mg PO BID 10/07/24 01/15/25 01/14/25 History celecoxib 200 mg capsule (Celebrex) 200 mg PO BID #180 caps 10/12/24 01/15/25 01/14/25 Rx duloxetine 30 mg capsule,delayed 30 mg PO QDAY #90 caps 12/07/24 01/15/25 01/14/25 Rx release ezetimibe 10 mg tablet 10 mg PO DAILY #90 tabs 12/14/24 01/15/25 01/14/25 Rx Diabetic Shoes with left foot toe #1 ea 12/21/24 01/15/25 Unknown Rx filler and 3 pairs of inserts lisinopril 20 1 tab PO DAILY #90 tabs 01/11/25 01/15/25 01/14/25 Rx mg-hydrochlorothiazide 12.5 mg tablet Allergies Allergy/AdvReac Type Severity Reaction Status Date / Time atorvastatin Allergy Unknown Unknown Verified 01/15/25 00:26 Current Medications Generic Name Dose Route Start Last Admin Trade Name Freq PRN Reason Stop Dose Admin Acetaminophen 650 mg 01/15/25 02:54 01/15/25 10:21 Acetaminophen 325 Mg Tablet PO 650 mg On Hold: 01/17/25 11:18 Q6H PRN Administration Comment: Order held by Process Mild/Mod Pain Or Temp >/= 101 Transfer Calamine 1 applic 01/15/25 09:00 01/17/25 07:40 Calamine Lotion 177 Ml Btl TOPICAL Not Given On Hold: 01/17/25 11:18 DAILY BRITT Comment: Order held by Process Transfer Duloxetine HCl 30 mg 01/15/25 10:00 01/17/25 07:39 Duloxetine 30 Mg Capsule PO 30 mg On Hold: 01/17/25 11:18 DAILY BRITT Administration Comment: Order held by Process Transfer Ezetimibe 10 mg 01/15/25 10:00 01/17/25 07:39 Ezetimibe 10 Mg Tablet PO 10 mg On Hold: 01/17/25 11:18 DAILY BRITT Administration Comment: Order held by Process Transfer Finasteride 5 mg 01/15/25 09:00 01/17/25 07:39 Finasteride 5 Mg Tablet PO 5 mg On Hold: 01/17/25 11:18 DAILY BRITT Administration Comment: Order held by Process Transfer Heparin Sodium (Porcine) 5,000 unit 01/15/25 03:00 01/17/25 02:21 Heparin 5,000 Unit/Ml Inj 1 Ml SUBCUT 5,000 unit On Hold: 01/17/25 11:18 Q12H BRITT Administration Comment: Order held by Process Transfer Sodium Chloride 1,000 mls @ 75 mls/hr 01/15/25 03:00 01/16/25 22:57 Sodium Chloride 0.9% IV 75 mls/hr .[id number] BRITT Administration Piperacillin Sod/Tazobactam 50 mls @ 12.5 mls/hr 01/16/25 09:00 01/17/25 10:25 Sod 3.375 gm/ Sodium Chloride IV 12.5 mls/hr Q8H BRITT Administration Vancomycin HCl 1,500 mg in 300 mls @ 200 mls/hr 01/16/25 09:00 01/17/25 09:17 Vancocin IV Infused On Hold: 01/17/25 11:18 Q12H BRITT Infusion Comment: Order held by Process Transfer Insulin Human Lispro 0 unit 01/15/25 08:00 01/17/25 10:52 Insulin Lispro 100 Unit/1 Ml SUBCUT Not Given On Hold: 01/17/25 11:18 WM&BEDTIME BRITT Comment: Order held by Process Protocol Transfer Pantoprazole Sodium 40 mg 01/15/25 09:00 01/17/25 07:[address] 40 Mg Tablet PO 40 mg On Hold: 01/17/25 11:18 DAILY BRITT Administration Comment: Order held by Process Transfer Tamsulosin HCl 0.8 mg 01/16/25 17:00 01/17/25 04:58 Tamsulosin 0.4 Mg Capsule PO 0.8 mg On Hold: 01/17/25 11:18 BID@0500,1700 BRITT Administration Comment: Order held by Process Transfer Tramadol HCl 50 mg 01/15/25 11:30 01/16/25 02:00 Tramadol 50 Mg Tablet PO 50 mg On Hold: 01/17/25 11:18 Q6H PRN Administration Comment: Order held by Process MODERATE PAIN Transfer [facility] Anesthesia Medical History (Updated 01/16/25 @ 12:58 by Juan Mcguire MD) Diabetic ulcer of right foot Amputation of left great toe Type 2 diabetes mellitus with diabetic foot infection Diabetic infection of left foot Gross hematuria Urinary retention Elevated PSA BPH loc w urin obs/LUTS Hypertension BPH (benign prostatic hyperplasia) Type 2 diabetes mellitus Surgical History History of amputation of right fourth toe S/P tonsillectomy Family History Mother , at age 60 Cancer colon Father , AT AGE 90 Alzheimer disease Social History Smoking and tobacco/nicotine status: never used tobacco/nicotine Alcohol intake: never Substance/Drug Use: never Marital status: Current occupational status: retired Data Anesthesia 01/17/25 05:08 01/17/25 05:08 Short CBC 01/16/25 01/17/25 Range/Units 04:17 05:08 WBC 8.27 6.37 (3.29-11.43) 10^3/uL Hgb 10.60 L 10.60 L (11.27-16.99) g/dL Hct 33.4 L 33.1 L (37-53) % MCV 92.0 91.2 (82-101) fl Plt Count 217 225 (157-399) 10^3/cmm Neut % (Auto) 73.0 61.6 % Neut # (Auto) 6.04 3.92 (1.8-7.7) 10^3/uL BMP 01/16/25 01/17/25 04:17 05:08 Sodium 138 141 Potassium 4.6 4.6 Chloride 107 108 H Carbon Dioxide 21 L 22 BUN 28 H 15 Creatinine 1.0 0.9 Glucose 150 H 98 Calcium 8.9 8.8 Liver Function 01/16/25 01/17/25 Range/Units 04:17 05:08 Total Bilirubin 0.3 0.3 (0.15-1.2) mg/dL AST 21 14 (0-40) U/L ALT 20 15 (0-41) U/L Alkaline Phosphatase 75 72 (40-130) U/L Albumin 3.5 3.4 L (3.5-5.2) g/dL Microbiology 01/15/25 03:56 Urine Culture - Final Urine,Clean Catch 01/15/25 10:00 Gram Stain - Final Toe - Left Second Wound Culture - Preliminary 01/15/25 11:14 Blood Culture - Preliminary Blood NEGATIVE TO DATE 01/15/25 11:08 Blood Culture - Preliminary Blood NEGATIVE TO DATE
--- NOTE | 2025-01-17 11:48 | W.PM.OPSUD ---
Surgery/Procedure H&P Update DATE OF PROCEDURE: January 17, 2025 DATE H&P PERFORMED: 01/15/25 H&P UPDATE INFORMATION: I have reviewed H&P completed within last 30 days, I have examined patient prior to procedure, No changes to prior documentation and Risks and benefits of the procedure reviewed PREOP DIAGNOSIS: Osteomyelitis left fourth toe PLANNED PROCEDURE: Operation Date: 01/17/25 12:10 Proposed Procedures p Left Fourth Toe Amputation(Left) - Jorden Sotelo DPM
[2025-01-17] MEDS: BUPivacaine 0.5% INJ 10 mL INJECTION (12:10)
--- NOTE | 2025-01-17 12:38 | PC.SOCIAL ---
IMM Updated Updated pt on IMM. No questions voiced. Provided pt a copy. Initialed, dated, & timed a copy & in chart.
--- NOTE | 2025-01-17 12:39 | W.PM.BPON ---
Date of Procedure: 09/05/23 Surgeon: Jorden Sotelo DPM [employer] Position Clerk(s): Pk left fourth toe amputation Procedure(s) performed: Findings of the procedure(s): Osteomyelitis distal phalanx left fourth toe Estimated blood loss: 5 mL Specimen(s) removed: Left fourth toe sent to pathology for permanent Post-operative diagnosis: Osteomyelitis left fourth toe
--- NOTE | 2025-01-17 12:40 | PM.OP ---
Operative Report Date of procedure: January 17, 2025 Pre-op diagnosis: Acute osteomyelitis left fourth toe distal phalanx Post-op diagnosis: Acute osteomyelitis left fourth toe distal phalanx Post-op findings: Acute osteomyelitis left fourth toe distal phalanx Procedure done: Left fourth toe amputation. CPT code 31995 Implants: 2-0 Vicryl, 4 nylon Specimens removed/disposition: Left fourth toe cultures taken post bedside debridement of left fourth toe 01/15/2025. Pathology: Left fourth toe sent to pathology for permanent Surgeon: Jorden Sotelo DPM Salon Assistant: Pk Estimated blood loss: 5 11 IV fluids: See intraoperative documentation Complications: No complications Brief History: 69-year-old male admitted to the hospital service for RAMA and rhabdomyolysis. He is found to have acute osteomyelitis of the distal phalanx left fourth toe. Patient would like to proceed with left fourth toe amputation. I reviewed at length with the patient, the risks, potential complications, benefits, alternatives, expectations, and typical outcomes associated with the surgery. The risks and potential complications were explained in detail, including but not limited to infection, wound dehiscence or soft tissue complications, bleeding and hematoma, chronic edema, neuritis or nerve damage producing numbness or chronic pain, CRPS, failure to relieve pain or worsening pain, thick / painful / unsightly scar, limited motion / stiffness, malposition, delayed union, malunion, or nonunion, fracture, reaction to implants, anesthetic complications, venous thromboembolism, and deformity recurrence. I discussed the notion of no regrets with the patient as it pertains to complications and outcomes. The patient seemed to understand the nature of the proposed care and required convalescence. They asked appropriate questions, answered to their satisfaction. They are aware no guarantees can be made as to a satisfactory outcome and they understand there may be other possible unforeseen complications or outcomes not listed here that will be treated accordingly if they arise. There were no written or implied guarantees given to the patient. They gave informed consent to proceed. Procedure: Under mild sedation the patient was brought to the operating room and remained on the gurney in supine position. Timeout was performed. Anesthesia was then administered by the anesthesia service. Local anesthesia injected by myself consisting of 20 cc of one-to-one mixture 1% lidocaine and 0.5% Marcaine plain in a left fourth ray block fashion to the left foot. Well-padded pneumatic tourniquet applied to the left ankle. The left lower extremity was scrubbed, prepped and draped utilizing normal aseptic technique. Left foot was then elevated and ankle tourniquet inflated to 250 mmHg. Attention was directed to the left fourth toe which was noted to have a full-thickness wound with exposed bone at the distal phalanx of the left fourth toe distal phalanx was devitalized with poor density and marques discoloration. Full-thickness skin incision performed at the left fourth ray this vertical converging semielliptical incision for vertical fishmouth incision full-thickness down through fourth metatarsal phalangeal joint and the left fourth toe was sharply disarticulated and passed from operative field. This was sent to pathology for gross anatomical review and permanent. The incision was irrigated with copious amounts of sterile saline solution. Fourth metatarsal head was visualized as normal and appropriate density and color with viable skin margins at the level of amputation of the metatarsal phalangeal joint. Further irrigation was performed followed by transection of extensor and flexor tendons under traction all bleeders were ligated and cauterized as necessary. After final irrigation and no further devitalized tissue the amputation site was reapproximated with myofascial layer being approximated with 2-0 Vicryl and skin with 4-0 nylon. The incision was dressed with Xeroform, sterile 4 x 4 gauze, Kerlix and Coban. Tourniquet was deflated and a hyperemic response is noted to the remaining 2 digits of the left foot. Patient tolerated procedure and anesthesia well and was transferred to the PACU with vital signs stable and vascular status intact. Following a period of postoperative monitoring patient will be transferred back to the floor. He may bear weight with a postop shoe.
--- NOTE | 2025-01-17 14:37 | ANE.PACU2 ---
Inpatient post-anesthesia follow up: Airway intact: Yes Vital signs: Temperature 97.4 F Pulse Rate 70 Respiratory Rate 17 Blood Pressure 134/73 Pulse Oximetry 96 Oxygen Delivery Me thod [ Room Air Current Rate & Del melissa] Oxygen Delivery Me thod Room Air Oxygen Flow Rate Fraction of Inspir ed Oxygen Hydration adequate: Yes Nausea and vomiting: No Pain level: 2 Mental status: Baseline
--- NOTE | 2025-01-17 17:23 | P.PN_ITS ---
Subjective 2 Subjective: 69-year-old male states that lakeshia jean bought a house in August which is the [address]-year-old home in [facility]. It needed pipes and he could not find any plumbers in [place] so he found 1 in [place] that came by and gave him an estimate for 3800 hours of work and left some PVC piping. Patient states he signed a contract on a smart phone that said he would give 1900 down and oh balance of 1900 after the work is done. He states he met the fraud prevention analyst at the patient's bank on Friday and gave him $1900 and $100 bills which was 19 of them. Furniture Dipper did not come on Friday and patient realize he was being ripped off so he took the PVC pipe that was left outside his home and put it in the bathroom. He states that he went to pee at night tripped over the pipes and damaged his toes that ended up amputated. He states that this fraud prevention analyst is responsible for ripping him off for $1900 and costing him his toes. Patient states he is spoken to [place] police as well as [place] police and they state this is a simple case and nothing can be done. Patient states that he decided to sign over his house to be [place] owned with his girlfriend whom he is known for 8 years. He states she is 40 years old and will be 41 in February 17, 2025. He states he [place] fell in love with her and figured that she would take care of him so he would not have to go to a shelter but they argue a lot. He was arguing with her recently and neighbors came by and complained that they were trying to have their sleep. He states his girlfriend was angry so he had run to the gas station about 0.8 miles away after working on his house with no shirt and overheated and came in with rhabdomyolysis and renal failure as described. Patient had left fourth toe amputation yesterday for gangrenous toe Vitals/I&O/Wt Last Vital Signs Temp 97.6 F 01/17/25 15:00 Pulse 53 L 01/17/25 16:00 Resp 16 01/17/25 16:00 BP 121/76 01/17/25 16:00 Pulse Ox 97 01/17/25 16:00 O2 Del Method Room Air 01/17/25 16:00 01/17/25 01/17/25 01/17/25 06:59 14:59 22:59 Intake Total 50 / 3610 1400 / 1400 Output Total 1450 / 5825 Balance -1400 / -2215 1395 / 1395 Weight last 48 hrs Weight 86.682 kg Weight 87.135 kg Physical Exam 2 Narrative: General well-developed well-nourished male in no acute cardiopulmonary stress CV regular rate and rhythm Lungs clear to auscultation bilaterally Abdomen positive bowel tones soft nontender Calves no tenderness cords pretrip edema Feet both sides wrapped up in gauze Data 01/17/25 05:08 01/17/25 05:08 Micro: Microbiology 01/15/25 10:00 Gram Stain - Final Toe - Left Second Wound Culture - Preliminary Gram Negative Rods Gram Negative Rods#2 Gram Negative Rods#3 01/15/25 03:56 Urine Culture - Final Urine,Clean Catch A&P Assessment and plan 1. RAMA (acute kidney injury): Most likely in setting of dehydration from poor oral intake, rhabdomyolysis, heat exhaustion. Resolved. Creatinine now 0.9 2. Diabetic foot ulcer: Post amputation this morning. Anticipate discharge home with wound care and antibiotics tomorrow 3. Osteomyelitis: As above status post amputation left fourth toe. 4. Type 2 diabetes mellitus without complication, without long-term current use of insulin: A1c of 6.3. Continue with insulin sliding scale. Patient takes metformin 850 mg twice daily at home. 5. Sunburn: calamine lotion topically 6. Rhabdomyolysis: Resolving. Repeat CK in the morning 7. Hypomagnesemia: Will replace with 4 g IV overnight 8. Iron deficiency anemia: Avoid NSAIDs start oral iron replacement follow-up outpatient for EGD and colonoscopy with general surgery Plan: DVT ppx: heparin 5000 s/c q12h Full code Carb consistent diet. N.p.o. after midnight. PDMP PDMP Reviewed: Not Reviewed Attestations 2 Medical Necessity Statement*: Patient will be monitored overnight postoperatively and anticipate discharge home tomorrow Coding Level of Care Code 51427 Diagnoses RAMA (acute kidney injury) N17.9 Diabetic foot ulcer E11.621; L97.509 Osteomyelitis M86.9 Type 2 diabetes mellitus without complication, without long-term current use of insulin E11.9 Diabetes mellitus rn long term care insulin use: without rn long term care use Diabetes mellitus complication status: without complication Sunburn L55.9 Rhabdomyolysis M62.82 Hypomagnesemia E83.42 Iron deficiency anemia D50.9 Time Spent (min) 45
[2025-01-17] MEDS: ferrous sulfate EC 325 mg Tablet PO (17:59)
[2025-01-17] MEDS: magnesium sulfate premix 4 GM/100 ML PREMIX IV (18:00)
[2025-01-18] VITALS: BP 125/75; PULSE 74; RESP 16; TEMP 36.8; O2SAT 98
[2025-01-18] MEDS: heparin 5,000 unit/mL INJ 1 mL 5000 UNIT SUBCUT (02:12)
[2025-01-18 04:00] VITALS: BP 138/74; PULSE 75; RESP 16; TEMP 36.4; O2SAT 95
[2025-01-18 07:26] VITALS: BP 116/71; PULSE 75; RESP 16; TEMP 36.8; O2SAT 98
[2025-01-18] MEDS: ferrous sulfate EC 325 mg Tablet PO (08:12)
[2025-01-18] MEDS: HYDROcodone-acetaminophen 5-325 mg Tablet 1 TAB PO (08:12)
--- NOTE | 2025-01-18 09:38 | PM.PN ---
Subjective Subjective: Patient seen bedside this morning. He is hopeful to go home today. Denies any pain in the left foot. Surgical dressing is clean dry and intact. Vitals/I&O/Wt Last Vital Signs Temp 98.2 F 01/18/25 07:26 Pulse 75 01/18/25 07:26 Resp 16 01/18/25 07:26 BP 116/71 01/18/25 07:26 Pulse Ox 98 01/18/25 07:26 O2 Del Method Room Air 01/18/25 07:26 01/17/25 01/18/25 01/18/25 22:59 06:59 14:59 Intake Total 640 / 2040 50 / 2090 360 / 360 Output Total 750 / 755 450 / 1205 900 / 900 Balance -110 / 1285 -400 / 885 -540 / -540 Weight last 48 hrs Weight 190 lb Weight 191 lb 1.6 oz Physical Exam Narrative: GENERAL: Patient is alert and oriented ?3 and in no acute distress. The following is a focused bilateral lower extremity exam. VASCULAR: Dorsalis pedis and posterior tibial arteries palpable +2. Capillary refill time less than 3 seconds to the distal hallux bilaterally. Calf is supple and nontender proximally and distally. Mild edema at the operative site consistent with postoperative course. NEUROLOGICAL: Protective sensation intact to light touch. DERMATOLOGICAL: Surgical dressing left foot is clean dry and intact without strikethrough bleeding, no erythema or cellulitis to the left foot. 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 Status post left fourth toe amputation. Data 01/17/25 05:08 01/17/25 05:08 Micro: Microbiology 01/15/25 10:00 Gram Stain - Final Toe - Left Second Wound Culture - Preliminary Klebsiella pneumoniae Gram Negative Rods#2 Enterobacter cloacae 01/15/25 03:56 Urine Culture - Final Urine,Clean Catch A&P Assessment and plan 1. Type 2 diabetes mellitus with diabetic foot infection: 2. Chronic ulcer of left foot with necrosis of bone: Patient would like to proceed with left fourth toe amputation. I reviewed at length with the patient, the risks, potential complications, benefits, alternatives, expectations, and typical outcomes associated with the surgery. The risks and potential complications were explained in detail, including but not limited to infection, wound dehiscence or soft tissue complications, bleeding and hematoma, chronic edema, neuritis or nerve damage producing numbness or chronic pain, CRPS, failure to relieve pain or worsening pain, thick / painful / unsightly scar, limited motion / stiffness, malposition, delayed union, malunion, or nonunion, fracture, reaction to implants, anesthetic complications, venous thromboembolism, and deformity recurrence. I discussed the notion of no regrets with the patient as it pertains to complications and outcomes. The patient seemed to understand the nature of the proposed care and required convalescence. They asked appropriate questions, answered to their satisfaction. They are aware no guarantees can be made as to a satisfactory outcome and they understand there may be other possible unforeseen complications or outcomes not listed here that will be treated accordingly if they arise. There were no written or implied guarantees given to the patient. They gave informed consent to proceed. Plan: 69-year-old male admitted to the hospital service for RAMA and rhabdomyolysis. He is found to have acute osteomyelitis of the distal phalanx left fourth toe. Status post left fourth toe amputation secondary to acute osteomyelitis performed 01/17/2025 with primary closure. Surgical dressings are clean dry and intact, will remain intact until follow-up visit in podiatry clinic next Friday. Weightbearing with postop shoe to the left foot Recommend 2 weeks of oral antibiotics at discharge follow-up in podiatry clinic Friday next week. PDMP PDMP Reviewed: Not Reviewed Attestations Medical Necessity Statement*: Per primary Coding Level of Care Code Acute Code for [facility] Fwd Diagnoses Type 2 diabetes mellitus with diabetic foot infection E11.628; L08.9 Chronic ulcer of left foot with necrosis of bone L97.524
[2025-01-18 10:50] LABS: Magnesium 1.4 mg/dL (1.7-2.3)
[2025-01-18 11:10] VITALS: BP 112/74; PULSE 89; RESP 15; TEMP 36.4; O2SAT 99
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
--- NOTE | 2025-01-18 14:34 | PC.NURSE ---
Patient's discharge medications escribed to [facility]. Hydrocodone prescription printed and signed by Dr. Huber, given to patient.
[2025-01-18 15:06] VITALS: BP 112/74; PULSE 89; RESP 16; TEMP 36.4; O2SAT 99
== END 2025-01-18 15:17 | disposition home or self-care (01) | DRG 617 ==
LOC: ER 02:53 → MEDSURG 04:19
PROVIDERS: Podiatrist Foot & Ankle Surgery; Student in an Organized Health Care Education/Training Program; Admitting Provider Student in an Organized Health Care Education/Training Program; Emergency Provider Emergency Medicine; PCP Family Medicine; Visit Provider Internal Medicine
PROC: 0Y6W0Z0 Detachment at Left 4th Toe, Complete, Open Approach (ICD-10-PCS; principal; 2025-01-17 12:00)
DX: E11.69 Type 2 diabetes mellitus with other specified complication (principal); M62.82 Rhabdomyolysis; M86.172 Other acute osteomyelitis, left ankle and foot; E11.621 Type 2 diabetes mellitus with foot ulcer; L97.524 Non-pressure chronic ulcer of other part of left foot with necrosis of bone; N17.9 Acute kidney failure, unspecified; E83.42 Hypomagnesemia; D50.9 Iron deficiency anemia, unspecified; E86.0 Dehydration; N40.1 Benign prostatic hyperplasia with lower urinary tract symptoms; R33.8 Other retention of urine; I10 Essential (primary) hypertension; L55.9 Sunburn, unspecified; I95.9 Hypotension, unspecified; G40.909 Epilepsy, unspecified, not intractable, without status epilepticus; Z89.412 Acquired absence of left great toe; Z89.421 Acquired absence of other right toe(s)
CPT/HCPCS: 36415; 36416; 71045; 73562; 73630; 74176; 80053; 80061; 80202; 80306; 80307; 81001; 82550; 82607; 82746; 82962; 83036; 83540; 83550; 83605; 83735; 84100; 84145; 84443; 84484; 85025; 86705; 86706; 86709; 86803; 87040; 87070; 87075; 87077; 87086; 87186; 87205; 87340; 87806; 88305; 88311; 93005; 96360; 96361; 96372; 97760; 99285; J1644; J1815; J2371; J2543; J2704; J3010; J3373; J3475; J3490; J7030; J9999; L3260

== ENCOUNTER → 2025-01-25 08:55 | Outpatient (BNVA) | payer OTHER, MEDICAID, SELFPAY | PROVIDERS: PCP Family Medicine; Visit Provider Podiatrist Foot & Ankle Surgery | DX: Z98.890 Other specified postprocedural states (principal); Z89.421 Acquired absence of other right toe(s); Z89.422 Acquired absence of other left toe(s); E11.42 Type 2 diabetes mellitus with diabetic polyneuropathy; Z89.412 Acquired absence of left great toe | CPT/HCPCS: 99213 ==

== ENCOUNTER → 2025-02-01 08:03 | Outpatient (BNVA) | payer OTHER, SELFPAY | PROVIDERS: PCP Family Medicine; Visit Provider Podiatrist Foot & Ankle Surgery | DX: Z98.890 Other specified postprocedural states (principal); Z89.421 Acquired absence of other right toe(s); Z89.422 Acquired absence of other left toe(s); E11.42 Type 2 diabetes mellitus with diabetic polyneuropathy; Z89.412 Acquired absence of left great toe | CPT/HCPCS: 99213 ==

== ENCOUNTER → 2025-03-08 10:15 | Outpatient (BNVA) | payer OTHER, SELFPAY | PROVIDERS: PCP Family Medicine; Visit Provider Family Medicine | DX: E83.42 Hypomagnesemia (principal) | CPT/HCPCS: 80053; 83735 ==

== ENCOUNTER → 2025-04-07 08:33 | Outpatient (BNVA) | payer OTHER, SELFPAY | PROVIDERS: PCP Family Medicine; Visit Provider Family Medicine | DX: N17.9 Acute kidney failure, unspecified (principal) | CPT/HCPCS: 80053 ==

== ENCOUNTER → 2025-04-14 08:46 | Outpatient (BNVA) | payer OTHER, SELFPAY | PROVIDERS: PCP Family Medicine; Visit Provider Orthopaedic Surgery | DX: M17.11 Unilateral primary osteoarthritis, right knee (principal); Z01.89 Encounter for other specified special examinations | CPT/HCPCS: 20610; 73560; 73565; 99204; J3301; J3490; J9999 ==